=== PATIENT | female | born 1990 | race Caucasian/White ===

== ENCOUNTER 2022-05-08 07:35 | Emergency (ER) | payer SELFPAY ==
--- OUTSIDE RECORDS SUMMARY | 2022-05-08 07:39 | XMS REPORT | Continuity of Care Document ---
:1990 Author Organization [facility] t Address [address] [facility] [address] [place] [address] Care Team Providers Name Role Phone Lincoln Carrasco MD Primary Care Physician RICO NICOLE Attending Clinician Unavailable Rico Montiel Attending Clinician Problems Condition Condition Condition Status Onset Resolution Last Treating Co mments Source Name Details Category Date Date Treatment Clinician Date Celiac Celiac Disease Active Univers disease disease 10-04 ity of 00:00: [place] 00 Medical Branch Allergies, Adverse Reactions, Alerts This patient has no known allergies or adverse reactions. Social History Social Habit Start Date Stop Date Quantity Comments Source Exposure to 2021-09-24 2021-10-04 Yes [facility] SARS-CoV-2 (event) 00:00:00 18:09:00 Medica l Branch Sex Assigned At [birth year] [facility] 00:00:00 00:00:00 Medical Branch Smoking Status Start Date Stop Date Source Tobacco smoking consumption [facility] unknown Branch Medications Ordered Filled Start Stop Current Ordering Indication Dosage Frequency Signature Comments Components Source Medication Medication Date Date Medication? Clinician (SIG) Name Name proMETHazin 2021- No [id number] 12.5mg Insert 1 Univers e 12.5 mg 10-05 Suppositor ity of suppository 00:00: 04:59 y into [place] as 00 :00 rectum Medical every 6 Branch (six) hours as needed for Nausea and Vomiting (N/V) for up to 2 days. nirmatrelvi Yes [id number] 3{tbl} Take 3 Univers r-ritonavir 7-28 tablets by it y of (PAXLOVID, 00:00: mouth in [place] EUA,) 150 00 the Medical mg x 2- 100 morning Branc h mg tablet and 3 tablets in the evening. nirmatrelvi Yes [id number] 3{tbl} Take 3 Univers r-ritonavir 7-28 tablets by it y of (PAXLOVID, 00:00: mouth in [place] EUA,) 150 00 the Medical mg x 2- 100 morning Branc h mg tablet and 3 tablets in the evening. proMETHazin 2021- No [id number] 12.5mg Insert 1 Univers e 12.5 mg 7-28 - Suppositor ity of suppository 00:00: 00:00 y into [place] 00 :00 rectum Medical every 6 Branch (six) hours as needed for Nausea and Vomiting (N/V). nirmatrelvi 2021- No [id number] 3{tbl} Take 3 Univers r-ritonavir 7-28 -28 tablets by i ty of (PAXLOVID, 00:00[place] 00:00 [place] EUA[place] 150 00 :00 the Medical mg x 2- 100 morning Branc h mg tablet and 3 tablets in the evening. proMETHazin 2021- No [id number] 12.5mg Insert 1 Univers e 12.5 mg 7-28 - Suppositor ity of suppository 00:00: 00:00 y into [place] 00 :00 rectum Medical every 6 Branch (six) hours as needed for Nausea and Vomiting (N/V) for up to 3 days. desog-e.est 2019-03- No [id number] 1{tbl} Take 1 Univers radioL/e.es 2-04 - tablet by it y of tradioL 00:00: 00:00 mouth [place] (VIORELE, 00 :00 daily. Medical 28,) Branch 0.15-0.02 mgx21 /0.01 mg x 5 per tablet Vital Signs Vital Name Observation Time Observation Value Comments Source Systolic blood 2021-10-04 23:22:00 104 mm[Hg] Univer sity of pressure [facility] Diastolic blood 2021-10-04 23:22:00 70 mm[Hg] Unive rsity of pressure [facility] Heart rate 2021-10-04 23:22:00 73 /min [facility] Body temperature 2021-10-04 23:22:00 37.39 Deborah [facility] Respiratory rate 2021-10-04 23:22:00 18 /min [facility] Body height 2021-10-04 23:22:00 157.5 cm [facility] Body weight 2021-10-04 23:22:00 51.71 kg [facility] BMI 2021-10-04 23:22:00 20.85 kg/m2 [facility] Oxygen saturation in 2021-10-04 23:22:00 97 /min [facility] Arterial blood by [facility] Pulse oximetry Branch Procedures Procedure Date / Time Performed Performing Clinician Sourc e POCT SARS-COV-2 2021-10-04 23:37:00 Rico Nicole [facility] ANTIGEN (BINAX NOW) Medical Bran ch Encounters Start End Encounter Admission Attending Care Care Encounter Source Date/Time Date/Time Type Type Clinicians Facility Department ID 2021-10-04 2021-10-04 [facility] [id number] 18:00:00 18:38:01 RICO goldstein o f [facility] 2021-10-04 2021-10-04 Urgent [facility] [id number] Univers 18:00:00 18:38:01 Care Rico [facility] [id number] ity of [place] [id number] [place] RUTHANN?BLEA [id number] [address] MEDICAL OFFICE BUILDING 2021-10-04 2021-10-04 Telephone [facility] [id number] Univers 00:00:00 00:00:00 Rico [facility] [id number] ity of [place] [id number] [place] RUTHANN?BLEA [id number] [address] MEDICAL OFFICE BUILDING Results Test Description Test Time Test Comments Results Result Comments Source POCT SARS-COV-2 ANTIGEN (BINAX NOW) 2021-10-04 23:37:00 Test Item Value Reference Range Interpretation Comme nts POCT SARS-COV-2 ANTIGEN (test code Positive Not Detected A = 5076) On board controls acceptable with Yes C Line (test code = 3574) VANNA (test code = VANNA) accurate development and interpretation of all internal controls Lab Interpretation (test code = Abnormal 97711-0) [facility]
[2022-05-08 09:09] LABS: SARS-COV-2 RT PCR NEGATIVE (NEGATIVE)
--- NOTE | 2022-05-08 09:10 | ER ---
Nurse's Notes [facility] Jermeias Name: Radha Huitron Age: 31 yrs Sex: Female : 1990 Arrival Date: 05/08/2022 Time: 07:38 Bed IW1 Private MD: Diagnosis: Acute pharyngitis, unspecified;Acute upper respiratory infection, unspecified Presentation: 05/08 07:54 Chief complaint: Patient states: "I feel like there is a marble on the L side of my ss throat." Pt reports that the swelling began within the past 24 hours. Coronavirus screen: Client denies travel out of the [place] in the last 14 days. Ebola Screen: Patient denies exposure to infectious person. Patient denies travel to an Ebola-affected area in the 21 days before illness onset. Initial Sepsis Screen: Does the patient meet any 2 criteria? No. Patient's initial sepsis screen is negative. Does the patient have a suspected source of infection? No. Patient's initial sepsis screen is negative. Risk Assessment: Do you want to hurt yourself or someone else? Patient reports no desire to harm self or others. Onset of symptoms was May 07, 2022. 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 States that she has a cycle without bleeding. ss Historical: - Allergies: 07:56 Wheat/glutens; ss - Home Meds: 07:56 None [Active]; ss - PMHx: 07:56 None; ss - PSHx: 07:56 Cholecystectomy; Tonsillectomy; ss - Immunization history:: Client reports having NOT received the Covid vaccine. - Social history:: Smoking status: Patient denies any tobacco usage or history of. Screenin:20 [facility] ED Fall Risk Assessment (Adult) History of falling in the last 3 months, ss including since admission No falls in past 3 months (0 pts). Abuse screen: Denies threats or abuse. Denies injuries from another. Nutritional screening: No deficits noted. Tuberculosis screening: Never had TB. Assessment: 08:03 General: Appears in no apparent distress. comfortable, Behavior is calm, cooperative. ss Pain: Complains of pain in throat Pain currently is 7 out of 10 on a pain scale. Quality of pain is described as sore. Neuro: Level of Consciousness is awake, alert, obeys commands, Oriented to person, place, time, situation. Respiratory: Airway is patent Respiratory effort is even, unlabored, Respiratory pattern is regular, symmetrical. Musculoskeletal: Circulation, motion, and sensation intact. Range of motion: intact in all extremities. 09:19 Reassessment: Patient appears in no apparent distress at this time. Patient and/or ss family updated on plan of care and expected duration. Pain level reassessed. Patient is alert, oriented x 3, equal unlabored respirations, skin warm/dry/pink. Vital Signs: 07:54 BP 123 / 79; Pulse 87; Resp 16; Temp 97.9(TE); Pulse Ox 100% on R/A; Weight 56.7 kg; ss Pain 7/10; ED Course: 07:38 Patient arrived in ED. rg4 07:41 Lenin Benitez MD is Attending Physician. [facility] 07:56 Triage completed. 07:56 Arm band placed on right wrist. 08:03 Patient has correct armband on for positive identification. 09:19 Licha Hall, RN is Primary Nurse. 09:19 No provider procedures requiring assistance completed. Patient did not have IV access ss during this emergency room visit. Administered Medications: No medications were administered Medication: 08:03 VIS not applicable for this client. ss Outcome: 09:10 Discharge ordered by . [facility] 09:19 Discharged to home ambulatory. 09:19 Condition: good 09:19 Discharge instructions given to patient, family, Pt and mother verbalize understanding importance of taking medications. Pt reports that she will not take the steroids because she is starting a new job and it would be bad for her, but is content with care received Instructed on discharge instructions, follow up and referral plans. medication usage, Demonstrated understanding of instructions, follow-up care, medications, Prescriptions given X 3. 09:20 Patient left the ED. ss Signatures: Lenin Benitez MD MD cha Smirch, Shelby, REENA RN Alysa Zamora rg4
--- NOTE | 2022-05-08 09:11 | EDPHYS ---
Physician Documentation [facility] Name: Radha Huitron Age: 31 yrs Sex: Female : 1990 Arrival Date: 05/08/2022 Time: 07:38 Bed IW1 Private MD: KATHY Physician Lenin Benitez HPI: 05/08 09:02 This 31 yrs old Female presents to ER via Ambulatory with complaints of Sore ruben Throat. 09:02 The patient presents with sore throat. The patient describes throat pain as burning, ruben constant. Onset: The symptoms/episode began/occurred 2 day(s) ago. Severity of symptoms: At their worst the symptoms were mild, in the emergency department the symptoms are unchanged. Modifying factors: The symptoms are alleviated by nothing, the symptoms are aggravated by swallowing. Associated signs and symptoms: The patient has no apparent associated signs or symptoms. The patient has experienced similar episodes in the past, several times. 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 States that she has a cycle without bleeding. ss Historical: - Allergies: 07:56 Wheat/glutens; ss - Home Meds: 07:56 None [Active]; ss - PMHx: 07:56 None; ss - PSHx: 07:56 Cholecystectomy; Tonsillectomy; ss - Immunization history:: Client reports having NOT received the Covid vaccine. - Social history:: Smoking status: Patient denies any tobacco usage or history of. ROS: 09:04 Constitutional: Negative for fever, chills, and weight loss, Eyes: Negative for injury, ruben pain, redness, and discharge, Neck: Negative for injury, pain, and swelling, Cardiovascular: Negative for chest pain, palpitations, and edema, Respiratory: Negative for shortness of breath, cough, wheezing, and pleuritic chest pain, Abdomen/GI: Negative for abdominal pain, nausea, vomiting, diarrhea, and constipation, Back: Negative for injury and pain, : Negative for injury, bleeding, discharge, and swelling, MS/Extremity: Negative for injury and deformity, Skin: Negative for injury, rash, and discoloration, Neuro: Negative for headache, weakness, numbness, tingling, and seizure, Psych: Negative for depression, anxiety, suicide ideation, homicidal ideation, and hallucinations, Allergy/Immunology: Negative for hives, rash, and allergies, Endocrine: Negative for neck swelling, polydipsia, polyuria, polyphagia, and marked weight changes, Hematologic/Lymphatic: Negative for swollen nodes, abnormal bleeding, and unusual bruising. : ENT: Positive for sore throat. Exam: :04 Constitutional: This is a well developed, well nourished patient who is awake, alert, ruben and in no acute distress. Head/Face: Normocephalic, atraumatic. Eyes: Pupils equal round and reactive to light, extra-ocular motions intact. Lids and lashes normal. Conjunctiva and sclera are non-icteric and not injected. Cornea within normal limits. Periorbital areas with no swelling, redness, or edema. Neck: Trachea midline, no thyromegaly or masses palpated, and no cervical lymphadenopathy. Supple, full range of motion without nuchal rigidity, or vertebral point tenderness. No Meningismus. Chest/axilla: Normal chest wall appearance and motion. Nontender with no deformity. No lesions are appreciated. Cardiovascular: Regular rate and rhythm with a normal S1 and S2. No gallops, murmurs, or rubs. Normal PMI, no JVD. No pulse deficits. Respiratory: Lungs have equal breath sounds bilaterally, clear to auscultation and percussion. No rales, rhonchi or wheezes noted. No increased work of breathing, no retractions or nasal flaring. Abdomen/GI: Soft, non-tender, with normal bowel sounds. No distension or tympany. No guarding or rebound. No evidence of tenderness throughout. Back: No spinal tenderness. No costovertebral tenderness. Full range of motion. Female : Normal external genitalia. Skin: Warm, dry with normal turgor. Normal color with no rashes, no lesions, and no evidence of cellulitis. MS/ Extremity: Pulses equal, no cyanosis. Neurovascular intact. Full, normal range of motion. Neuro: Awake and alert, GCS 15, oriented to person, place, time, and situation. Cranial nerves II-XII grossly intact. Motor strength 5/5 in all extremities. Sensory grossly intact. Cerebellar exam normal. Normal gait. Psych: Awake, alert, with orientation to person, place and time. Behavior, mood, and affect are within normal limits. :04 ENT: Posterior pharynx: Airway: normal, no evidence of obstruction, Tonsils: with erythema, Uvula: normal, midline, swelling, that is mild, erythema, that is mild, exudate, is not appreciated, peritonsillar mass, is not appreciated, pooling of secretions, is not appreciated, Voice: is normal. Vital Signs: 07:54 BP 123 / 79; Pulse 87; Resp 16; Temp 97.9(TE); Pulse Ox 100% on R/A; Weight 56.7 kg; ss Pain 7/10; MDM: 07:42 Patient medically screened. [facility] 09:06 Differential diagnosis: bronchitis, influenza, laryngitis, mononucleosis, peritonsillar ruben abscess pharyngitis. Data reviewed: vital signs, nurses notes, lab test result(s), Flu: negative. Consideration of Admission/Observation Escalation of care including admission/observation considered. I considered the following discharge prescriptions or medication management in the emergency department Medications were administered in the Emergency Department. See MAR. Test considered but Not performed: CT: soft tissue neck. Care significantly affected by the following chronic conditions: none. 05/08 08:43 Order name: Group A Streptococcus Rapid Sc; Complete Time: 08:51 EDMS 05/08 09:06 Order name: COVID-19/FLU A+B; Complete Time: 09:09 EDMS 05/08 09:09 Order name: Throat Culture EDMS Administered Medications: No medications were administered Disposition Summary: 05/08/22 09:10 Discharge Ordered Location: Home ruben Problem: new ruben Symptoms: have improved ruben Condition: Stable ruben Diagnosis - Acute pharyngitis, unspecified ruben - Acute upper respiratory infection, unspecified ruben Followup: ruben - With: Private Physician - When: 2 - 3 days - Reason: Recheck today's complaints, Continuance of care, Re-evaluation by your physician Discharge Instructions: - Discharge Summary Sheet ruben - Sore Throat ruben - Cool Mist Vaporizer ruben - Pharyngitis, Rgme-ay-Qjgo ruben - Sore Throat, Mndn-wk-Cois ruben Forms: - Medication Reconciliation Form ruben - Thank You Letter ruben - Antibiotic Education ruben - Prescription Opioid Use ruben Prescriptions: - Farida-D 12 Hour 60-120 mg Oral Tablet Sustained Release 12 hr - take 1 tablet by ORAL route every 12 hours As needed; 20 tablet; Refills: 0, ruben Product Selection Permitted - Zithromax Z-Félix 250 mg Oral Tablet - take 1 tablet by ORAL route as directed for 5 days Day 1 - take two (2) tablets ruben one time. Day 2, 3, 4 , 5 take one (1) tablet once daily.; 6 tablet; Refills: 0, Product Selection Permitted - Medrol (Félix) 4 mg Oral Tablets, Dose Pack - take 1 tablet by ORAL route as directed - follow package instructions; 1 ruben packet; Refills: 0, Product Selection Permitted Signatures: Dispatcher [employer] Lenin Nix MD MD cha Smirch, Shelby, RN RN ss
[2022-05-08 09:29] VITALS: BP 123/79; TEMP 97.9; O2SAT 100
== END 2022-05-08 09:20 | disposition home or self-care (01) ==
LOC: ER 07:35
DX: J02.9 Acute pharyngitis, unspecified (principal); J06.9 Acute upper respiratory infection, unspecified; Z91.018 Allergy to other foods
CPT/HCPCS: 0240U; 87070; 87081

== ENCOUNTER → 2023-06-01 | Emergency (ER) | payer SELFPAY ==
[~2023-06-01] MED LIST: DICYCLOMINE HCL 10 MG CAP ONE; DICYCLOMINE HCL 20 MG/2 ML AMP IM ONE; KETOROLAC 30 MG/ML INJ ONE; NA CHLORIDE 0.9% 500 ML ONE
--- OUTSIDE RECORDS SUMMARY | 2023-06-01 21:24 | XMS REPORT | Continuity of Care Document ---
Author Name Unknown Address [address] [facility] [address] [address] th[address] Address [address] [facility] [address] [place] [address] Care Team Providers Care Film Mounter Name Role Phone Lincoln Carrasco MD Primary Care Physician RICO NICOLE Attending Clinician Unavail Rico Sanchez Attending Clinician + [phone] Problems Condition Name Condition Details Condition Category Status Onset Date Resolution Date Last Treatment Date Treating Clinician Comments Source Celiac disease Celiac disease Disease Active 10-04 00:00: 00 [facility] Social History Social Habit Start Date Stop Date Quantity Comments Source Exposure to SARS-CoV-2 (event) 2021-09-24 00:00:00 2021-10-04 18:09:00 Yes [facility] Sex Assigned At 1990 00:00:00 1990 00:00:00 [facility] Smoking Status Start Date Stop Date Source Tobacco smoking consumption unknown [facility] Medications Ordered Medication Name Filled Medication Name Start Date Stop Date Current Medication? Ordering Clinician Indication Dosage Frequency Signature (SIG) Comments Components Source proMETHazin e 12.5 mg suppository 10-05 00:00: 00 10-08 04:59 :00 No [id number] 12.5mg Insert 1 Suppositor y into rectum every 6 (six) hours as needed for Nausea and Vomiting (N/V) for up to 2 days. [facility] nirmatrelvi r-ritonavir (PAXLOVID, EUA,) 150 mg x 2- 100 mg tablet 10-04 00:00: 00 Yes [id number] 3{tbl} Take 3 tablets by mouth in the morning and 3 tablets in the evening. [facility] nirmatrelvi r-ritonavir (PAXLOVID, EUA,) 150 mg x 2- 100 mg tablet 10-04 00:00: 00 Yes [id number] 3{tbl} Take 3 tablets by mouth in the morning and 3 tablets in the evening. [facility] proMETHazin e 12.5 mg suppository 10-04 00:00: 00 10-05 00:00 :00 No [id number] 12.5mg Insert 1 Suppositor y into rectum every 6 (six) hours as needed for Nausea and Vomiting (N/V). [facility] nirmatrelvi r-ritonavir (PAXLOVID, EUA,) 150 mg x 2- 100 mg tablet 10-04 00:00: 00 10-04 00:00 :00 No [id number] 3{tbl} Take 3 tablets by mouth in the morning and 3 tablets in the evening. [facility] proMETHazin e 12.5 mg suppository 10-04 00:00: 00 10-04 00:00 :00 No [id number] 12.5mg Insert 1 Suppositor y into rectum every 6 (six) hours as needed for Nausea and Vomiting (N/V) for up to 3 days. [facility] desog-e.est radioL/e.es tradioL (OREL, ,) 0.15-0.02 mgx21 /0.01 mg x 5 per tablet 2019-03 2-04 00:00: 00 10-04 00:00 :00 No [id number] 1{tbl} Take 1 tablet by mouth daily. [facility] Vital Signs Vital Name Observation Time Observation Value Comments S carlito Systolic blood pressure 2021-10-04 23:22:00 104 mm[Hg] [place] [facility] Diastolic blood pressure 2021-10-04 23:22:00 70 mm[Hg] [place] [facility] Heart rate 2021-10-04 23:22:00 73 /min [facility] Body temperature 2021-10-04 23:22:00 37.39 Deborah [facility] Respiratory rate 2021-10-04 23:22:00 18 /min [facility] Body height 2021-10-04 23:22:00 157.5 cm [facility] Body weight 2021-10-04 23:22:00 51.71 kg [facility] BMI 2021-10-04 23:22:00 20.85 kg/m2 [facility] Oxygen saturation in Arterial blood by Pulse oximetry 2021-10-04 23:22:00 97 /min [place] [facility] Procedures Procedure Date / Time Performed Performing Clinicia n Source POCT SARS-COV-2 ANTIGEN (BINAX NOW) 2021-10-04 23:37:00 Rico Nicole [facility] Encounters Start Date/Time End Date/Time Encounter Type Admission Type Attending [facility] Care Facility Care Department Encounter ID Source 2021-10-04 18:00:00 2021-10-04 18:38:01 Outpatient R RICO NICOLE [facility] [id number] [facility] 2021-10-04 18:00:00 2021-10-04 18:38:01 Urgent Care Rico Nicole [facility] [id number] [facility] 2021-10-04 00:00:00 2021-10-04 00:00:00 Telephone Rico Nicole [facility] [id number] [facility] Results Test Description Test Time Test Comments Results Result Co mments Source [facility]
--- NOTE | 2023-06-01 22:40 | RAD REPORT ---
EXAM DESCRIPTION: CTAbdomen Pelvis W Contrast - 06/01/2023 10:31 pm CLINICAL HISTORY: Abdominal pain. RLQ abd pain, worse COMPARISON: No comparisons TECHNIQUE: Biphasic CT imaging of the abdomen and pelvis was performed with 100 ml non-ionic IV cont rast. All CT scans are performed using dose optimization technique as appropriate and may include automated exposure control or mA/KV adjustment according to patient size. FINDINGS: The lung bases are clear. The liver, spleen, pancreas, adrenal glands and kidneys are within normal limits. No bowel obstruction, free air, free fluid or abscess. Several distal ileal loops are significantly f ecalized. There is significant retention: Stool also present on the right. The appendix is normal. N o evidence of significant lymphadenopathy. No suspicious bony findings. IMPRESSION: Fecalization of numerous distal ileal loops are present suggesting delayed transit or in ertia. Moderate colonic stool is present along the right colon. Normal appendix
[2023-06-01 22:43] LABS: Absolute Eosinophils 0.9 K/uL (0-0.5); Absolute Lymphocytes (CBC) 3.5 K/uL (0.7-4.9); Absolute Monocytes 0.7 K/uL (0.1-1.3); Absolute Neutrophil 6.2 K/uL (1.8-8.0); Basophils % 0.2 % (0-1.3); Hematocrit 32.5 % (36.0-45.0); Hemoglobin 10.4 g/dL (12.0-15.0); Lymphocytes % 31.1 % (15.3-44.8); MCH 19.1 pg (27.0-35.0); MCV 59.7 fL (80-100); MPV 8.7 fL (7.6-11.3); Monocytes % 6.1 % (3.3-12.3); Neutrophils % 54.6 % (41.7-73.7); Nucleated Red Blood Cells % 0.2 % (0-0); Platelets 290 thou/uL (152-406); RBC Red Blood Cell Count 5.44 M/uL (3.86-4.86); Red Cell Distribution Width 15.5 % (12.1-15.2)
[2023-06-01 22:56] LABS: Albumin 3.3 g/dL (3.4-5.0); Albumin/Globulin Ratio 1.1 (1.1-1.8); Anion Gap 9.9 mEq/L (5.0-15.0); Bilirubin Total 0.6 mg/dL (0.2-1.0); Globulin 3.1 g/dL (2.3-3.5); Potassium 3.9 mEq/L (3.5-5.1); Protein, Total 6.4 g/dL (6.4-8.2)
--- NOTE | 2023-06-02 00:02 | EDPHYS ---
Physician Documentation [facility] Name: Radha Huitron Age: 32 yrs Sex: Female : 1990 Arrival Date: 06/01/2023 Time: 21:21 Bed 17 Private MD: ED Physician Nicolás Jerez HPI: 05/31 22:10 This 32 yrs old Female presents to ER via Wheelchair with complaints of Abdominal Pain. rn 22:10 The patient presents with abdominal pain right lower quadrant. rn 22:11 Onset: The symptoms/episode began/occurred 3 day(s) ago. The symptoms do not radiate. rn Associated signs and symptoms: Pertinent negatives: blood in stools, chest pain, constipation, diarrhea, dysuria, fever, hematuria, vaginal discharge. The symptoms are described as sharp, stabbing. Modifying factors: The symptoms are alleviated by nothing, the symptoms are aggravated by pressure, touching the area. Severity of pain: At its worst the pain was moderate in the emergency department the pain has improved. The patient has not experienced similar symptoms in the past. Patient seen earlier today with negative workup. Returns for persistent abdominal pain. Has not worsened. Declined pain medication earlier in previous visit. Patient states does not want narcotic pain medication. No known history of kidney stones but CT earlier showed right renal stone without hydro or ureteral stone. Negative for appendicitis.. Historical: - Allergies: 21:43 Wheat/glutens; tl4 - PSHx: 21:43 Cholecystectomy; Tonsillectomy; tl4 - Immunization history:: Adult Immunizations unknown. - Social history:: Smoking status: Reported history of juuling and/or vaping. - Family history:: not pertinent. - Hospitalizations: : No recent hospitalization is reported. ROS: 22:11 Constitutional: Negative for fever, chills, and weight loss, Cardiovascular: Negative rn for chest pain, palpitations, and edema, Respiratory: Negative for shortness of breath, cough, wheezing, and pleuritic chest pain, Abdomen/GI: + abdominal pain Back: Negative for injury and pain, : Negative for injury, bleeding, discharge, and swelling, Exam: 22:11 Constitutional: This is a well developed, well nourished patient who is awake, alert, rn and in no acute distress. Cardiovascular: Regular rate and rhythm. No pulse deficits. Respiratory: No increased work of breathing, no retractions or nasal flaring. Abdomen/GI: Soft, mild RLQ tenderness, no rebound Vital Signs: 21:40 BP 132 / 75; Pulse 63; Resp 15; Temp 97.3(TE); Pulse Ox 100% on R/A; Weight 56.7 kg; tl4 Height 5 ft. 3 in. ; Pain 10/10; 22:02 BP 101 / 59; Pulse 91; Pulse Ox 97% on R/A; Pain 10/10; tm6 23:16 BP 107 / 59; Pulse 72; Pulse Ox 98% on R/A; Pain 8/10; tm6 06/01 00:51 BP 109 / 68; Pulse 55; Resp 17; Temp 97.1(TE); Pulse Ox 100% on R/A; Pain 5/10; tm6 05/31 21:40 Body Mass Index 22.14 (56.70 kg, 160.02 cm) 4 05/31 21:40 Pain Scale: Adult tl4 22:02 Pain Scale: Adult tm6 23:16 Pain Scale: Adult tm6 06/01 00:51 Pain Scale: Adult tm6 MDM: 05/31 21:30 Patient medically screened. rn 23:59 Differential diagnosis: appendicitis, diverticulitis, Endometriosis, gastritis, rn non-specific abd pain, Ovarian Torsion, Ureterolithiasis. Data reviewed: vital signs, nurses notes, lab test result(s), radiologic studies, CT scan, ultrasound. Counseling: I had a detailed discussion with the patient and/or guardian regarding the historical points, exam findings, and any diagnostic results supporting the discharge/admit diagnosis, lab results, radiology results, the need for outpatient follow up, to return to the emergency department if symptoms worsen or persist or if there are any questions or concerns that arise at home. Special discussion: Based on the patient's Hx, exam, and Dx evaluation, there is no indication for emergent surgery or inpatient Tx. It is understood by the patient/guardian that if the Sx's persist or worsen they need to return immediately for re-evaluation. I discussed with the patient/guardian in detail that at this point there is no indication for admission to the hospital. It is understood, however, that if the symptoms persist or worsen the patient needs to return immediately for re-evaluation. ED course: CT stone protocol was performed earlier on first visit, CT abdomen pelvis with IV contrast as well as ultrasound of pelvis performed today during this visit to rule out any other etiology of her pain. CT now shows fecalization into the distal small bowel, most likely fecal retention, no other acute finding. Ultrasound is negative for torsion or evidence of acute pathology. Urine and UPT was negative earlier. No gross changes in blood work. Will discharge home with return precautions.. 05/31 21:37 Order name: CBC with Diff rn 05/31 21:37 Order name: CMP; Complete Time: 23:44 rn 05/31 22:50 Order name: CBC Smear Scan EDMS 05/31 21:37 Order name: CT Abd/Pelvis - IV Contrast Only; Complete Time: 23:44 rn 05/31 21:37 Order name: US Pelvis Complete rn 05/31 21:37 Order name: IV Saline Lock; Complete Time: 21:58 rn 05/31 21:37 Order name: Labs collected and sent; Complete Time: 21:58 rn 05/31 22:13 Order name: Labs - recollect needed; Complete Time: 22:23 lg3 Administered Medications: 23:15 Drug: Ketorolac IVP 15 mg IVP once Route: IVP; Site: right antecubital; tm6 06/01 00:21 Drug: NS 0.9% IV 500 ml IV at bolus once Route: IV; Rate: bolus; Site: right tm6 antecubital; 00:50 Follow up: IV Status: Completed infusion; IV Intake: 500ml tm6 00:22 Not Given (Patient Refused): [id number] mg IM once tm6 00:22 Drug: Dicyclomine PO 20 mg PO once Route: PO; tm6 Disposition Summary: 06/02/23 00:01 Discharge Ordered Notes: Location: Home rn Problem: new rn Symptoms: have improved rn Condition: Stable rn Diagnosis - Lower abdominal pain, unspecified rn - Constipation, unspecified rn Followup: rn - With: Private Physician - When: As needed - Reason: Recheck today's complaints, Re-evaluation by your physician Discharge Instructions: - Discharge Summary Sheet rn - Abdominal Pain, Adult rn - Constipation, Adult rn Forms: - Medication Reconciliation Form rn - Thank You Letter rn - Antibiotic rn first assist - Prescription Opioid Use rn - Patient Portal Instructions rn - Leadership Thank You Letter rn Prescriptions: - dicyclomine 20 mg Oral tablet - take 1 tablet ORAL route 2 times per day As needed; 12 tablet; Refills: 0, rn Product Selection Permitted Signatures: Dispatcher [employer] EDMS Nicolás Jerez MD MD rn Able, Lacie RN RN lg3 Zackary Rader RN RN tm6 LogPetr spencer RN RN tl4 Corrections: (The following items were deleted from the chart) 05/31 22:15 22:11 Constitutional: This is a well developed, well nourished patient who is awake, rn alert, and in no acute distress. Cardiovascular: Regular rate and rhythm. No pulse deficits. Respiratory: No increased work of breathing, no retractions or nasal flaring. Abdomen/GI: Soft, mild RLQ tenderness, no rebound rn
--- NOTE | 2023-06-02 00:02 | ER ---
Nurse's Notes [facility] Name: Radha Huitron Age: 32 yrs Sex: Female : 1990 Arrival Date: 06/01/2023 Time: 21:21 Bed 17 Private MD: Diagnosis: Lower abdominal pain, unspecified;Constipation, unspecified Presentation: 05/31 21:40 Chief complaint: Patient states: Pt c/o right lower quadrant abdominal pain x 3 days. tl4 Pt was evaluated in this ED this am. Pt states pain has gotten worse throughout the day. +nausea. Coronavirus screen: At this time, the client does not indicate any symptoms associated with coronavirus-19. Ebola Screen: No symptoms or risks identified at this time. Initial Sepsis Screen: Does the patient meet any 2 criteria? No. Patient's initial sepsis screen is negative. Does the patient have a suspected source of infection? No. Patient's initial sepsis screen is negative. Risk Assessment: Do you want to hurt yourself or someone else? Patient reports no desire to harm self or others. Onset of symptoms was June 01, 2023. 21:40 Method Of Arrival: Wheelchair tl4 21:40 Acuity: EDITH 3 tl4 Triage Assessment: 21:45 General: Appears in no apparent distress. Behavior is cooperative. Pain: Complains of tl4 pain in abdomen. EENT: No deficits noted. No signs and/or symptoms were reported regarding the EENT system. Neuro: Level of Consciousness is awake, alert, obeys commands, Oriented to person, place, time, situation, Moves all extremities. Speech is normal, Facial symmetry appears normal. Cardiovascular: Capillary refill < 3 seconds Patient's skin is warm and dry. Respiratory: Airway is patent Trachea midline Respiratory effort is even, unlabored, Respiratory pattern is regular, symmetrical. GI: Reports lower abdominal pain, nausea. : No deficits noted. No signs and/or symptoms were reported regarding the genitourinary system. Derm: No deficits noted. No signs and/or symptoms reported regarding the dermatologic system. Musculoskeletal: No deficits noted. No signs and/or symptoms reported regarding the musculoskeletal system. Historical: - Allergies: 21:43 Wheat/glutens; tl4 - PSHx: 21:43 Cholecystectomy; Tonsillectomy; tl4 - Immunization history:: Adult Immunizations unknown. - Social history:: Smoking status: Reported history of juuling and/or vaping. - Family history:: not pertinent. - Hospitalizations: : No recent hospitalization is reported. Screenin:58 [facility] ED Fall Risk Assessment (Adult) History of falling in the last 3 months, tm6 including since admission No falls in past 3 months (0 pts) Confusion or Disorientation No (0 pts) Intoxicated or Sedated No (0 pts) Impaired Gait No (0 pts) Mobility Assist Device Used No (0 pt) Altered Elimination No (0 pt) Score/Fall Risk Level 0 - 2 = Low Risk Oriented to surroundings, Maintained a safe environment. Abuse screen: Denies threats or abuse. Denies injuries from another. Nutritional screening: No deficits noted. Tuberculosis screening: No symptoms or risk factors identified. Assessment: 21:58 General: Appears distressed, uncomfortable, Behavior is cooperative, anxious, crying. tm6 Pain: Complains of pain in right lower quadrant Pain currently is 10 out of 10 on a pain scale. Quality of pain is described as stabbing. Neuro: Level of Consciousness is awake, alert, obeys commands, Oriented to person, place, time, situation. Cardiovascular: Capillary refill < 3 seconds Patient's skin is warm and dry. Respiratory: Airway is patent Respiratory effort is even, unlabored, Respiratory pattern is regular, symmetrical. GI: Abdomen is flat, non-distended, Bowel sounds present X 4 quads. Abdomen is tender to palpation in right lower quadrant Reports nausea. : No signs and/or symptoms were reported regarding the genitourinary system. EENT: No signs and/or symptoms were reported regarding the EENT system. Derm: No signs and/or symptoms reported regarding the dermatologic system. Musculoskeletal: No signs and/or symptoms reported regarding the musculoskeletal system. 23:16 Reassessment: Patient and/or family updated on plan of care and expected duration. Pain tm6 level reassessed. Patient is alert, oriented x 3, equal unlabored respirations, skin warm/dry/pink. 06/01 00:51 Reassessment: Patient is alert, oriented x 3, equal unlabored respirations, skin tm6 warm/dry/pink. Vital Signs: 05/31 21:40 BP 132 / 75; Pulse 63; Resp 15; Temp 97.3(TE); Pulse Ox 100% on R/A; Weight 56.7 kg; tl4 Height 5 ft. 3 in. ; Pain 10/10; 22:02 BP 101 / 59; Pulse 91; Pulse Ox 97% on R/A; Pain 10/10; tm6 23:16 BP 107 / 59; Pulse 72; Pulse Ox 98% on R/A; Pain 8/10; tm6 06/01 00:51 BP 109 / 68; Pulse 55; Resp 17; Temp 97.1(TE); Pulse Ox 100% on R/A; Pain 5/10; tm6 05/31 21:40 Body Mass Index 22.14 (56.70 kg, 160.02 cm) tl4 05/31 21:40 Pain Scale: Adult tl4 22:02 Pain Scale: Adult tm6 23:16 Pain Scale: Adult tm6 06/01 00:51 Pain Scale: Adult tm6 ED Course: 05/31 21:25 Patient arrived in ED. gm2 21:30 Nicolás Jerez MD is Attending Physician. rn 21:43 Triage completed. tl4 21:46 Arm band placed on right wrist. tl4 21:51 Zackary Rader, REENA is Primary Nurse. tm6 21:55 Inserted saline lock: 20 gauge in right antecubital area, using aseptic technique. cp4 Blood collected. 21:58 Patient has correct armband on for positive identification. Placed in gown. Bed in low tm6 position. Call light in reach. Side rails up X2. Provided Education on: plan of care. Client placed on continuous cardiac and pulse oximetry monitoring. NIBP monitoring applied. Pulse ox on. NIBP on. Door closed. Noise minimized. Lights dimmed. Warm blanket given. 21:58 CBC with Diff Sent. tm6 21:58 CMP Sent. tm6 22:32 CT Abd/Pelvis - IV Contrast Only In Process Unspecified. EDMS 23:15 US Pelvis Complete In Process Unspecified. EDMS 06/01 00:51 No provider procedures requiring assistance completed. IV discontinued, intact, tm6 bleeding controlled, No redness/swelling at site. Pressure dressing applied. Administered Medications: 05/31 23:15 Drug: Ketorolac IVP 15 mg IVP once Route: IVP; Site: right antecubital; tm6 06/01 00:21 Drug: NS 0.9% IV 500 ml IV at bolus once Route: IV; Rate: bolus; Site: right tm6 antecubital; 00:50 Follow up: IV Status: Completed infusion; IV Intake: 500ml tm6 00:22 Not Given (Patient Refused): [id number] mg IM once tm6 00:22 Drug: Dicyclomine PO 20 mg PO once Route: PO; tm6 Medication: 05/31 21:58 VIS not applicable for this client. tm6 Intake: 06/01 00:50 IV: 500ml; Total: 500ml. tm6 Outcome: 00:01 Discharge ordered by . rn 00:51 Discharged to home ambulatory, with family, tm6 00:51 Condition: stable 00:51 Discharge instructions given to patient, family, Instructed on discharge instructions, follow up and referral plans. medication usage, Demonstrated understanding of instructions, follow-up care, medications, Prescriptions given X 1, 00:52 Patient left the ED. tm6 Signatures: Dispatcher [employer] EDMS Nicolás Jerez MD MD rn Potter, Christina 4 Radha Valadez 2 Zackary Rader RN RN tm6 Petr Arango RN RN tl4
[2023-06-02 01:02] LABS: Blood Morphology Comment NOTED (NOT SEEN); Hypochromasia 2+; Microcytosis 3+; Platelet Estimate ADEQ; Teardrop Cell 2+; White Blood Cell Scan OK (OK)
[2023-06-02 01:18] VITALS: BP 109/68; TEMP 97.1; O2SAT 100
--- NOTE | 2023-06-02 21:54 | RAD REPORT ---
EXAM DESCRIPTION: US Pelvis Transabdominal, Complete CLINICAL HISTORY: The patient is 32 years old and is Female; RLQ PAIN TECHNIQUE: Real-time complete transabdominal pelvic ultrasound with image documentation. COMPARISON: No relevant prior studies available. FINDINGS: UTERUS/CERVIX: The uterus measures 7.3 x 3.1 x 3.9 cm. Endometrium measures 0.8 cm. Tr corey amount of fluid is noted within the cervix. No myometrial mass. RIGHT OVARY: The right ovary measures 3.8 x 2.2 x 3.0 cm. Normal arterial and venous color Dopple r and spectral waveform is present. Normal blood flow. LEFT OVARY: The left ovary measures 4.1 x 3.2 x 2.4 cm. Normal arterial and venous color Doppler and spectral waveform is present. A 2.6 cm left ovarian cyst is present. No follow-up imaging is opal mmended. Normal blood flow. FREE FLUID: Small amount of fluid present within the cul-de-sac. BLADDER: Unremarkable as visualized. Wall is normal thickness for degree of distention. IMPRESSION: Unremarkable pelvic ultrasound. Electronically signed by: Jackie Rangel MD 06/01/2023 11:39 PM CDT Due to temporary technical issues with the PACS/Fluency reporting system, reports are being signed by the in house radiologists without review as a courtesy to insure prompt reporting. The interpreting radiologist is fully responsible for the content of the report.
== END ==
LOC: ER 21:21
DX: K59.00 Constipation, unspecified (principal)
CPT/HCPCS: 36415; 74177; 76856; 80053; 85025; Q9967

== ENCOUNTER → 2023-06-01 | Emergency (ER) | payer SELFPAY ==
[~2023-06-01] MED LIST changes: -DICYCLOMINE HCL 10 MG CAP ONE; -DICYCLOMINE HCL 20 MG/2 ML AMP IM ONE; +FAMOTIDINE 20 MG/2 ML VIAL IV ONE; -KETOROLAC 30 MG/ML INJ ONE; +MORPHINE 2 MG/ML SYR ONE; +NA CHLORIDE 0.9% 1,000 ML ONE; -NA CHLORIDE 0.9% 500 ML ONE; +ONDANSETRON 4 MG/2 ML VIAL ONE
--- OUTSIDE RECORDS SUMMARY | 2023-06-01 08:35 | XMS REPORT | Continuity of Care Document ---
Author Name Unknown Address [address] [facility] [address] [place] [address] [facility] thconnect Address [address] [facility] 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 Name Role Phone Lincoln Carrasco MD Primary Care Physician RICO NICOLE Attending Clinician Unavail Rico Sanchez Attending Clinician [phone] Problems Condition Name Condition Details Condition Category Status Onset Date Resolution Date Last Treatment Date Treating Clinician Comments Source Celiac disease Celiac disease Disease Active 10-04 00:00: 00 [facility] Social History Social Habit Start Date Stop Date Quantity Comments Source Exposure to SARS-CoV-2 (event) 2021-09-24 00:00:00 2021-10-04 18:09:00 Yes [facility] Sex Assigned At 1990 00:00:00 1990 00:00:00 [facility] Smoking Status Start Date Stop Date Source Tobacco smoking consumption unknown [facility] Medications Ordered Medication Name Filled Medication Name Start Date Stop Date Current Medication? Ordering Clinician Indication Dosage Frequency Signature (SIG) Comments Components Source proMETHazin e 12.5 mg suppository 10-05 00:00: 00 10-08 04:59 :00 No [id number] 12.5mg Insert 1 Suppositor y into rectum every 6 (six) hours as needed for Nausea and Vomiting (N/V) for up to 2 days. [facility] nirmatrelvi r-ritonavir (PAXLOVID, EUA,) 150 mg x 2- 100 mg tablet 10-04 00:00: 00 Yes [id number] 3{tbl} Take 3 tablets by mouth in the morning and 3 tablets in the evening. [facility] nirmatrelvi r-ritonavir (PAXLOVID, EUA,) 150 mg x 2- 100 mg tablet 10-04 00:00: 00 Yes [id number] 3{tbl} Take 3 tablets by mouth in the morning and 3 tablets in the evening. [facility] proMETHazin e 12.5 mg suppository 10-04 00:00: 00 10-05 00:00 :00 No [id number] 12.5mg Insert 1 Suppositor y into rectum every 6 (six) hours as needed for Nausea and Vomiting (N/V). [facility] nirmatrelvi r-ritonavir (PAXLOVID, EUA,) 150 mg x 2- 100 mg tablet 10-04 00:00: 00 10-04 00:00 :00 No [id number] 3{tbl} Take 3 tablets by mouth in the morning and 3 tablets in the evening. [facility] proMETHazin e 12.5 mg suppository 10-04 00:00: 00 10-04 00:00 :00 No [id number] 12.5mg Insert 1 Suppositor y into rectum every 6 (six) hours as needed for Nausea and Vomiting (N/V) for up to 3 days. [facility] desog-e.est radioL/e.es tradioL (VIOREL, ,) 0.15-0.02 mgx21 /0.01 mg x 5 per tablet 2019-03 00:00: 00 10-04 00:00 :00 No [id number] 1{tbl} Take 1 tablet by mouth daily. [facility] Vital Signs Vital Name Observation Time Observation Value Comments S our Systolic blood pressure 2021-10-04 23:22:00 104 mm[Hg] [facility] Diastolic blood pressure 2021-10-04 23:22:00 70 mm[Hg] [facility] Heart rate 2021-10-04 23:22:00 73 /min [facility] Body temperature 2021-10-04 23:22:00 37.39 Deborah [facility] Respiratory rate 2021-10-04 23:22:00 18 /min [facility] Body height 2021-10-04 23:22:00 157.5 cm [facility] Body weight 2021-10-04 23:22:00 51.71 kg [facility] BMI 2021-10-04 23:22:00 20.85 kg/m2 [facility] Oxygen saturation in Arterial blood by Pulse oximetry 2021-10-04 23:22:00 97 /min [facility] Procedures Procedure Date / Time Performed Performing Clinicia n Source POCT SARS-COV-2 ANTIGEN (BINAX NOW) 2021-10-04 23:37:00 Rico Nicole [facility] Encounters Start Date/Time End Date/Time Encounter Type Admission Type Attending Clinicians Care Facility Care Department Encounter ID Source 2021-10-04 18:00:00 2021-10-04 18:38:01 Outpatient R RICO NICOLE [facility] [id number] [facility] 2021-10-04 18:00:00 2021-10-04 18:38:01 Urgent Care Rico Nicole [facility] [id number] [facility] 2021-10-04 00:00:00 2021-10-04 00:00:00 Telephone Rico Nicole [facility] MEDICAL OFFICE BUILDING [id number] [facility] Results Test Description Test Time Test Comments Results Result Co mments Source [facility]
[2023-06-01 09:40] LABS: Absolute Basophils 0.2 K/uL (0-0.5); Absolute Lymphocytes (CBC) 2.8 K/uL (0.7-4.9); Absolute Monocytes 0.4 K/uL (0.1-1.3); Absolute Neutrophil 3.4 K/uL (1.8-8.0); Basophils % 2.7 % (0-1.3); Eosinophils % 12.2 % (0-4.4); Hematocrit 39.1 % (36.0-45.0); Hemoglobin 12.5 g/dL (12.0-15.0); Lymphocytes % 36.4 % (15.3-44.8); MCH 19.3 pg (27.0-35.0); MCV 60.3 fL (80-100); MPV 8.4 fL (7.6-11.3); Monocytes % 5.4 % (3.3-12.3); Neutrophils % 43.3 % (41.7-73.7); Nucleated Red Blood Cells % 0.2 % (0-0); Platelets 361 thou/uL (152-406); RBC Red Blood Cell Count 6.49 M/uL (3.86-4.86); Red Cell Distribution Width 15.2 % (12.1-15.2)
[2023-06-01 09:42] LABS: Specific Gravity 1.017 (1.005-1.030)
[2023-06-01 09:43] LABS: Specific Gravity 1.017 (1.005-1.030); Urine Bacteria None Seen /HPF (<20); Urine Bilirubin NEGATIVE (Negative); Urine Blood Negative (Negative); Urine Clarity Extremely Turbid (Clear); Urine Color Light-Yellow (Yellow); Urine Culture Reflex Order NOT NEEDED; Urine Glucose NEGATIVE (Negative); Urine Ketones NEGATIVE (Negative); Urine Microscopic Reflex YN ORDER UMIC; Urine Nitrite NEGATIVE (Negative); Urine Protein TRACE (Negative); Urine RBC <5 /HPF (None Seen); Urine Urobilinogen Normal (Normal); Urine WBC <5 /HPF (<5); Urine pH 8.5 (5.0-7.0)
[2023-06-01 09:58] LABS: Albumin 4.2 g/dL (3.4-5.0); Albumin/Globulin Ratio 1.1 (1.1-1.8); Anion Gap 7.8 mEq/L (5.0-15.0); Bilirubin Total 1.1 mg/dL (0.2-1.0); Globulin 3.7 g/dL (2.3-3.5); Potassium 3.8 mEq/L (3.5-5.1); Protein, Total 7.9 g/dL (6.4-8.2)
--- NOTE | 2023-06-01 10:13 | RAD REPORT ---
EXAM DESCRIPTION: CT - Stone Protocol - 06/01/2023 9:57 am CLINICAL HISTORY: Flank pain. ABD PAIN COMPARISON: No comparisons TECHNIQUE: Axial images were obtained without oral or IV contrast. Lack of contrast limits solid org an and vascular assessment. The [id number]-fm-kgsy spans the entirety of the system partially obscuring uppermost abdomen and lung bases. Coronal reformatted images were obtained and reviewed. All CT scans are performed using dose optimization technique as appropriate and may include automated exposure control or mA/KV adjustment according to patient size. FINDINGS: The lower lung deng are clear. Cholecystectomy clips. Imaged portions of the liver and spleen show no suspicious findings on non-contrast imaging. The panc reas and adrenal glands are normal. No pathologic lymphadenopathy in the abdomen or pelvis. Tiny calculus right kidney. No hydronephrosis or additional calculus seen. No bowel obstruction, free air, free fluid or abscess. Normal appendix noted.Moderate stool is presen t throughout the colon. No significant bony abnormality. Somewhat bulky appearance to the cervix. IMPRESSION: Tiny nonobstructing calculus right kidney. No evidence of appendicitis. Bulky appearance to the cervix is nonspecific. Suggest correlation with Pap smear if not recently per formed.
--- NOTE | 2023-06-01 10:35 | ER ---
Nurse's Notes [facility] Name: Radha Huitron Age: 32 yrs Sex: Female : 1990 Arrival Date: 06/01/2023 Time: 08:32 Bed 19 Private MD: Diagnosis: Abdominal tenderness;Vomiting;Endometriosis, unspecified;Abnormal findings on diagnostic imaging of other specified body structures-PROMINENT CERVIX ON CT Presentation: 05/31 08:50 Chief complaint: RLQ pain and nausea x 3 days. Coronavirus screen: At this time, the hb client does not indicate any symptoms associated with coronavirus-19. Ebola Screen: No symptoms or risks identified at this time. Initial Sepsis Screen: Does the patient meet any 2 criteria? No. Patient's initial sepsis screen is negative. Does the patient have a suspected source of infection? No. Patient's initial sepsis screen is negative. Risk Assessment: Do you want to hurt yourself or someone else? Patient reports no desire to harm self or others. Onset of symptoms was May 30, 2023. 08:50 Method Of Arrival: Ambulatory 08:50 Acuity: EDITH 3 hb Triage Assessment: 08:51 General: Appears in no apparent distress. Behavior is calm, cooperative. Pain: Pain hb currently is 4 out of 10 on a pain scale. Neuro: Level of Consciousness is awake, alert, obeys commands, Oriented to person, place, time, situation. Cardiovascular: Patient's skin is warm and dry. Respiratory: Respiratory effort is even, unlabored, Respiratory pattern is regular, symmetrical. GI: Reports lower abdominal pain, nausea. 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 - Social history:: Smoking status: Patient denies any tobacco usage or history of. - Family history:: not pertinent. Screenin:48 [facility] ED Fall Risk Assessment (Adult) History of falling in the last 3 months, cp4 including since admission No falls in past 3 months (0 pts) Confusion or Disorientation No (0 pts) Intoxicated or Sedated No (0 pts) Impaired Gait No (0 pts) Mobility Assist Device Used No (0 pt) Altered Elimination No (0 pt) Score/Fall Risk Level 0 - 2 = Low Risk Oriented to surroundings, Maintained a safe environment, Assessed \T\ reinforced patient's understanding of fall precautions, Hourly rounding (assess needs \T\ fall precautionary measures) done. Abuse screen: Denies threats or abuse. Nutritional screening: No deficits noted. Tuberculosis screening: No symptoms or risk factors identified. Vital Signs: 08:50 BP 115 / 75; Pulse 83; Resp 16; Temp 98.4; Pulse Ox 99% on R/A; Weight 56.7 kg; Height hb 5 ft. 3 in. ; Pain 4/10; 10:00 BP 96 / 67; Pulse 64; Resp 18; Pulse Ox 100% ; cp4 08:50 Body Mass Index 22.14 (56.70 kg, 160.02 cm) hb 08:50 Pain Scale: Adult hb ED Course: 08:36 Patient arrived in ED. ra3 08:49 Lenin Benitez MD is Attending Physician. ruben 08:51 Triage completed. hb 08:51 Arm band placed on. hb 08:57 Radiology exam delayed due to test not completed at this time. mw3 09:19 Brook Rodriguez, RN is Primary Nurse. db 09:31 CBC with Diff Sent. bc6 09:31 CMP Sent. bc6 09:31 Lipase Sent. bc6 09:31 Test, Urine Sent. bc6 09:31 Urinalysis w/ reflexes Sent. bc6 09:31 Initial lab(s) drawn, by la, sent to lab. Inserted saline lock: 22 gauge in right bc6 forearm, using aseptic technique. Blood collected. 09:58 CT Stone Protocol In Process Unspecified. EDMS 10:32 Lizz Kaplan MD is Referral Physician. ruben 10:32 Gregoria Lindsay MD is Referral Physician. ruben 10:48 Bed in low position. Call light in reach. Side rails up X 1. Provided Education on: cp4 abdominal pain. 10:48 No provider procedures requiring assistance completed. intact, bleeding controlled, No cp4 redness/swelling at site. Pressure dressing applied. Administered Medications: 09:35 Drug: NS 0.9% IV 1000 ml IV at 1 bolus Per protocol; 1000 mL bolus Route: IV; Rate: 1 db bolus; Site: right antecubital; 09:35 Drug: Famotidine IVP 20 mg IVP once; dilute with 10 mL 0.9% NaCl; give over 2 minutes db Route: IVP; Site: right antecubital; 09:35 Drug: Ondansetron IVP 4 mg IVP once; over 2 minutes Route: IVP; Site: right antecubital;db 09:40 Not Given (Patient Refused): morphineor iv 2 mg IVP once over 4 mins db Medication: 10:48 VIS not applicable for this client. cp4 Outcome: 10:34 Discharge ordered by MD. ruben 10:48 Discharged to home ambulatory, cp4 10:48 Condition: stable 10:48 Discharge instructions given to patient, Instructed on discharge instructions, follow up and referral plans. medication usage, Demonstrated understanding of instructions, follow-up care, medications, Prescriptions given X 3, 10:50 Patient left the ED. cp4 Signatures: Dispatcher [employer] EDMS Lenin Benitez MD MD cha Baxter, Heather, RN RN Alisa Toribio mw3 Brook Rodriguez RN RN db Irlanda Flores6 Nessa Yung cp4 Ines Tao ra3 Corrections: (The following items were deleted from the chart) 09:40 09:35 morphine IVP or IV 2 mg IVP in right antecubital over 4 mins db db
--- NOTE | 2023-06-01 10:35 | EDPHYS ---
Physician Documentation [facility] Name: Radha Huitron Age: 32 yrs Sex: Female : 1990 Arrival Date: 06/01/2023 Time: 08:32 Bed 19 Private MD: ED Physician Lenin Benitez HPI: 05/31 10:26 This 32 yrs old Female presents to ER via Ambulatory with complaints of rt ruben side ppain with nausea. 10:26 The patient presents with abdominal pain in the right upper quadrant, right lower ruben quadrant. Onset: The symptoms/episode began/occurred 2 day(s) ago. The patient presents to the emergency department with nausea, vomiting, abdominal pain, of the posterior aspect of right lateral abdomen, anterior aspect of right lateral abdomen and right lower quadrant. Onset: The symptoms/episode began/occurred 2 day(s) ago. Possible causes: unknown. The symptoms do not radiate. Associated signs and symptoms: Pertinent positives: nausea and vomiting. 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 - Social history:: Smoking status: Patient denies any tobacco usage or history of. - Family history:: not pertinent. ROS: 10:26 Constitutional: Negative for fever, chills, and weight loss, Eyes: Negative for injury, ruben pain, redness, and discharge, ENT: Negative for injury, pain, and discharge, Neck: Negative for injury, pain, and swelling, Cardiovascular: Negative for chest pain, palpitations, and edema, Respiratory: Negative for shortness of breath, cough, wheezing, and pleuritic chest pain, Back: Negative for injury and pain, : Negative for injury, bleeding, discharge, and swelling, MS/Extremity: Negative for injury and deformity, Skin: Negative for injury, rash, and discoloration, Neuro: Negative for headache, weakness, numbness, tingling, and seizure, Psych: Negative for depression, anxiety, suicide ideation, homicidal ideation, and hallucinations, Allergy/Immunology: Negative for hives, rash, and allergies, Endocrine: Negative for neck swelling, polydipsia, polyuria, polyphagia, and marked weight changes, Hematologic/Lymphatic: Negative for swollen nodes, abnormal bleeding, and unusual bruising, 10:26 Abdomen/GI: Positive for abdominal pain, nausea and vomiting, of the right lower quadrant, Exam: 10:26 Constitutional: This is a well developed, well nourished patient who is awake, alert, ruben and in no acute distress. Head/Face: Normocephalic, atraumatic. Eyes: Pupils equal round and reactive to light, extra-ocular motions intact. Lids and lashes normal. Conjunctiva and sclera are non-icteric and not injected. Cornea within normal limits. Periorbital areas with no swelling, redness, or edema. ENT: Nares patent. No nasal discharge, no septal abnormalities noted. Tympanic membranes are normal and external auditory canals are clear. Oropharynx with no redness, swelling, or masses, exudates, or evidence of obstruction, uvula midline. Mucous membranes moist. Neck: Trachea midline, no thyromegaly or masses palpated, and no cervical lymphadenopathy. Supple, full range of motion without nuchal rigidity, or vertebral point tenderness. No Meningismus. Chest/axilla: Normal chest wall appearance and motion. Nontender with no deformity. No lesions are appreciated. Cardiovascular: Regular rate and rhythm with a normal S1 and S2. No gallops, murmurs, or rubs. Normal PMI, no JVD. No pulse deficits. Respiratory: Lungs have equal breath sounds bilaterally, clear to auscultation and percussion. No rales, rhonchi or wheezes noted. No increased work of breathing, no retractions or nasal flaring. Back: No spinal tenderness. No costovertebral tenderness. Full range of motion. Skin: Warm, dry with normal turgor. Normal color with no rashes, no lesions, and no evidence of cellulitis. MS/ Extremity: Pulses equal, no cyanosis. Neurovascular intact. Full, normal range of motion. Neuro: Awake and alert, GCS 15, oriented to person, place, time, and situation. Cranial nerves II-XII grossly intact. Motor strength 5/5 in all extremities. Sensory grossly intact. Cerebellar exam normal. Normal gait. Psych: Awake, alert, with orientation to person, place and time. Behavior, mood, and affect are within normal limits. 10:26 Abdomen/GI: Inspection: abdomen appears normal, Bowel sounds: normal, Palpation: mild abdominal tenderness, in the right lower quadrant, Liver: no appreciated palpable abnormalities, Hernia: not appreciated, Vital Signs: 08:50 BP 115 / 75; Pulse 83; Resp 16; Temp 98.4; Pulse Ox 99% on R/A; Weight 56.7 kg; Height hb 5 ft. 3 in. ; Pain 4/10; 10:00 BP 96 / 67; Pulse 64; Resp 18; Pulse Ox 100% ; cp4 08:50 Body Mass Index 22.14 (56.70 kg, 160.02 cm) hb 08:50 Pain Scale: Adult hb MDM: 08:49 Patient medically screened. ruben 10:30 Differential diagnosis: gastritis, pancreatitis, appendicitis, diverticulitis, viral ruben gastroenteritis, gastroenteritis, appendicitis, bowel obstruction, diverticulitis, Dysmenorrhea, Ectopic , Endometriosis, Irritable bowel syndrome, Menorrhagia, non-specific abd pain, Ureterolithiasis, urinary tract infection. Data reviewed: vital signs, nurses notes, lab test result(s), radiologic studies, CT scan. Consideration of Admission/Observation Escalation of care including admission/observation considered. I considered the following discharge prescriptions or medication management in the emergency department Medications were administered in the Emergency Department. See MAR. Independent interpretation of the following test(s) in the Emergency Department CT Scan: My interpretation is CT STONE NEG. Test considered but Not performed: Ultrasound NO ABD USG. Care significantly affected by the following chronic conditions: SP DANIELLA. 05/31 08:51 Order name: CBC with Diff [facility] 05/31 08:51 Order name: CMP; Complete Time: 10:17 ruben 05/31 08:51 Order name: Lipase; Complete Time: 10:17 ruben 05/31 08:51 Order name: Test, Urine; Complete Time: 09:43 ruben 05/31 08:51 Order name: Urinalysis w/ reflexes; Complete Time: 10:17 ruben 05/31 09:45 Order name: CBC Smear Scan [facility] 05/31 08:51 Order name: CT Stone Protocol; Complete Time: 10:17 [facility] 05/31 08:51 Order name: IV Saline Lock; Complete Time: 09:31 [facility] 05/31 08:51 Order name: Labs collected and sent; Complete Time: :31 ruben Administered Medications: 09:35 Drug: NS 0.9% IV 1000 ml IV at 1 bolus Per protocol; 1000 mL bolus Route: IV; Rate: 1 db bolus; Site: right antecubital; 09:35 Drug: Famotidine IVP 20 mg IVP once; dilute with 10 mL 0.9% NaCl; give over 2 minutes db Route: IVP; Site: right antecubital; 09:35 Drug: Ondansetron IVP 4 mg IVP once; over 2 minutes Route: IVP; Site: right antecubital;db 09:40 Not Given (Patient Refused): morphineor iv 2 mg IVP once over 4 mins db Disposition Summary: 06/01/23 10:34 Discharge Ordered Notes: Location: Home ruben Problem: new ruben Symptoms: have improved ruben Condition: Stable ruben Diagnosis - Abdominal tenderness ruben - Vomiting ruben - Endometriosis, unspecified ruben - Abnormal findings on diagnostic imaging of other specified body structures - ruben PROMINENT CERVIX ON CT Followup: ruben - With: Private Physician - When: 2 - 3 days - Reason: Recheck today's complaints, Continuance of care, Re-evaluation by your physician Followup: ruben - With: Lizz Kaplan MD - When: 2 - 3 days - Reason: Recheck today's complaints, Re-evaluation by your physician Followup: ruben - With: Gregoria Lindsay MD - When: 2 - 3 days - Reason: Recheck today's complaints, Re-evaluation by your physician Discharge Instructions: - Discharge Summary Sheet ruben - Abdominal Pain, Adult ruben - Endometriosis ruben - Nausea and Vomiting, Adult ruben - Abdominal Pain, Adult, [id number] ruben - Vomiting, Adult [facility] Forms: - Medication Reconciliation Form [facility] - Thank You Letter [facility] - Antibiotic Education [facility] - Prescription Opioid Use [facility] - Patient Portal Instructions [facility] - Leadership Thank You Letter [facility] Prescriptions: - diclofenac sodium 50 mg Oral tablet, delayed release (enteric coated) - take 1 tablet ORAL route every 8 hours; 30 tablet; Refills: 0, Product ruben Selection Permitted - ondansetron 4 mg Oral Tablet,disintegrating - take 1 tablet ORAL route every 6-8 hours; 20 tablet; Refills: 0, Product [facility] Selection Permitted - dicyclomine 20 mg Oral tablet - take 1 tablet ORAL route 4 times per day; 28 tablet; Refills: 0, Product ruben Selection Permitted Signatures: Dispatcher [employer] Lenin Nix MD MD cha Baxter, Heather, RN RN Brook Villavicencio RN RN db
[2023-06-01 10:55] LABS: Blood Morphology Comment NOTED (NOT SEEN); Microcytosis 2+; Platelet Estimate ADEQ; White Blood Cell Scan OK (OK)
[2023-06-01 11:35] VITALS: BP 96/67; TEMP 98.4; O2SAT 100
== END ==
LOC: ER 08:32
DX: R10.813 Right lower quadrant abdominal tenderness (principal); R11.10 Vomiting, unspecified; N80.9 Endometriosis, unspecified; R93.89 Abnormal findings on diagnostic imaging of other specified body structures; Z91.018 Allergy to other foods
CPT/HCPCS: 36415; 74176; 76377; 80053; 81001; 81025; 83690; 85025; 96374; 96375; 99284; J2270; J2405; J7030

== ENCOUNTER 2023-07-03 18:38 | Emergency (ER) | payer SELFPAY ==
[2023-07-03] MEDS ORDERED: NA CHLORIDE 0.9% 1,000 ML ONE (19:38)
[2023-07-03 19:44] LABS: Absolute Basophils 0.1 K/uL (0-0.5); Absolute Eosinophils 0.5 K/uL (0-0.5); Absolute Lymphocytes (CBC) 4.6 K/uL (0.7-4.9); Absolute Neutrophil 9.2 K/uL (1.8-8.0); Basophils % 0.9 % (0-1.3); Hematocrit 33.7 % (36.0-45.0); Hemoglobin 10.5 g/dL (12.0-15.0); MCH 18.4 pg (27.0-35.0); MCHC 31.2 g/dL (32.0-36.0); Monocytes % 6.3 % (3.3-12.3); Neutrophils % 59.8 % (41.7-73.7); Platelets 401 thou/uL (152-406); RBC Red Blood Cell Count 5.72 M/uL (3.86-4.86)
[2023-07-03 19:45] LABS: Specific Gravity 1.022 (1.005-1.030); Sqamous Epithelial 20-50 /HPF (None Seen); Urine Bacteria None Seen /HPF (<20); Urine Bilirubin NEGATIVE (Negative); Urine Blood Negative (Negative); Urine Clarity Extremely Turbid (Clear); Urine Color Light-Yellow (Yellow); Urine Crystals Unidentified Few /HPF (None Seen); Urine Culture Reflex Order NOT NEEDED; Urine Glucose NEGATIVE (Negative); Urine Ketones 3+ (Negative); Urine Micro Reflex YN NO BILL MICROSCOPIC; Urine Mucus 1+ /HPF (None Seen); Urine Nitrite NEGATIVE (Negative); Urine Protein TRACE (Negative); Urine RBC <5 /HPF (None Seen); Urine Urobilinogen Normal (Normal); Urine WBC <5 /HPF (<5)
[2023-07-03 20:05] LABS: ALT/SGPT 16 U/L (13-56); AST/SGOT 9 U/L (15-37); Albumin 3.7 g/dL (3.4-5.0); Albumin/Globulin Ratio 1.1 (1.1-1.8); Alkaline Phosphatase 70 U/L (45-117); Anion Gap 9.7 mEq/L (5.0-15.0); BUN Blood Urea Nitrogen 13 mg/dL (7-18); Bicarbonate 24 mEq/L (21-32); Bilirubin Direct 0.2 mg/dL (0-0.2); Bilirubin Indirect, Calculated 0.5 mg/dL (0.2-0.8); Bilirubin Total 0.7 mg/dL (0.2-1.0); Globulin 3.4 g/dL (2.3-3.5); Glomerular Filtration Rate 129 ml/min (=/>90); Glucose Level 101 mg/dL (74-106); Magnesium 1.8 mg/dL (1.6-2.4); NT PRO-BNP 15 pg/mL (<125); Potassium 3.7 mEq/L (3.5-5.1); Protein, Total 7.1 g/dL (6.4-8.2); Sodium Level 134 mEq/L (136-145); Thyroid Stimulating Hormone 0.867 uIU/mL (0.358-3.740); Troponin High Sensitivity < 3.0 pg/mL (<58.9)
[2023-07-03 20:51] LABS: Blood Morphology Comment NOTED (NOT SEEN); Hypochromasia 1+; Microcytosis 2+; Platelet Estimate ADEQ; White Blood Cell Scan OK (OK)
[2023-07-03 20:52] LABS: Ovalocytes SLIGHT; Poikilocytosis 1+; Polychromasia SLIGHT; Teardrop Cell FEW
--- NOTE | 2023-07-03 20:56 | ER ---
Nurse's Notes [facility] Name: Radha Huitron Age: 32 yrs Sex: Female : 1990 Arrival Date: 07/03/2023 Time: 18:38 Bed 5 Private MD: Diagnosis: Shortness of breath;Syncope Near Presentation: 07/02 18:51 Chief complaint: Patient states: Woke up from a nap about 30 minutes ago feeling ss disoriented and short of breath. Pt states, "I felt like my blood pressure was up" Pt reports she is 6 weeks . Coronavirus screen: Client denies travel out of the [place] in the last 14 days. Ebola Screen: Patient denies exposure to infectious person. Patient denies travel to an Ebola-affected area in the 21 days before illness onset. Initial Sepsis Screen: Does the patient meet any 2 criteria? No. Patient's initial sepsis screen is negative. Does the patient have a suspected source of infection? No. Patient's initial sepsis screen is negative. Risk Assessment: Do you want to hurt yourself or someone else? Patient reports no desire to harm self or others. Onset of symptoms was July 03, 2023. 18:51 Method Of Arrival: Ambulatory ss 18:51 Acuity: EDITH 3 ss Triage Assessment: 18:54 General: Appears in no apparent distress. Behavior is calm, cooperative, anxious. ss Neuro: Level of Consciousness is awake, alert, obeys commands. Respiratory: Airway is patent Respiratory effort is even, unlabored, Respiratory pattern is regular, symmetrical. Derm: Skin is pink, warm \\T\\ dry. normal. 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 - Infectious Disease History:: Denies. - Social history:: Smoking status: Patient denies any tobacco usage or history of. - Family history:: not pertinent. Screenin:42 [facility] ED Fall Risk Assessment (Adult) History of falling in the last 3 months, tm6 including since admission No falls in past 3 months (0 pts) Confusion or Disorientation No (0 pts) Intoxicated or Sedated No (0 pts) Impaired Gait No (0 pts) Mobility Assist Device Used No (0 pt) Altered Elimination No (0 pt) Score/Fall Risk Level 0 - 2 = Low Risk Oriented to surroundings, Maintained a safe environment. Abuse screen: Denies threats or abuse. Denies injuries from another. Nutritional screening: No deficits noted. Tuberculosis screening: No symptoms or risk factors identified. Assessment: 19:42 General: Appears in no apparent distress. Behavior is calm, cooperative. Pain: Denies tm6 pain. Neuro: Level of Consciousness is awake, alert, obeys commands, Oriented to person, place, time, situation, Reports weakness general. Neuro: Reports feeling disoriented earlier. Cardiovascular: Reports None Patient's skin is warm and dry. Respiratory: Airway is patent Respiratory effort is even, unlabored, Respiratory pattern is regular, symmetrical, Parent/caregiver reports the patient having shortness of breath at rest. GI: Abdomen is flat, non-distended. : No signs and/or symptoms were reported regarding the genitourinary system. EENT: No signs and/or symptoms were reported regarding the EENT system. Derm: No signs and/or symptoms reported regarding the dermatologic system. Musculoskeletal: No signs and/or symptoms reported regarding the musculoskeletal system. 20:36 Reassessment: Patient appears in no apparent distress at this time. Patient and/or tm6 family updated on plan of care and expected duration. Pain level reassessed. Patient is alert, oriented x 3, equal unlabored respirations, skin warm/dry/pink. 21:02 Reassessment: Patient and/or family updated on plan of care and expected duration. Pain tm6 level reassessed. Patient is alert, oriented x 3, equal unlabored respirations, skin warm/dry/pink. Patient states feeling better. Patient states symptoms have improved. Vital Signs: 18:51 BP 118 / 80; Pulse 84; Resp 16; Temp 99(O); Pulse Ox 100% on R/A; Weight 56.7 kg; ss Height 5 ft. 2 in. ; Pain 0/10; 19:42 BP 125 / 72; Pulse 84; Pulse Ox 99% on R/A; Pain 0/10; tm6 20:35 BP 130 / 87; Pulse 90; Pulse Ox 100% on R/A; Pain 0/10; tm6 21:01 BP 114 / 86; Pulse 93; Resp 19; Temp 98.1(TE); Pulse Ox 100% on R/A; Pain 0/10; tm6 18:51 Body Mass Index 22.86 (56.70 kg, 157.48 cm) ss 18:51 Pain Scale: Adult ss 19:42 Pain Scale: Adult tm6 20:35 Pain Scale: Adult tm6 21:01 Pain Scale: Adult tm6 Vitals: 19:42 Cardiac Rhythm Assessment Regular Sinus rhythm. tm6 ED Course: 18:41 Patient arrived in ED. rg4 18:44 Mason Gates MD is Attending Physician. rt 18:54 Triage completed. ss 18:54 Arm band placed on right wrist. ss 19:11 Zackary Rader, RN is Primary Nurse. tm6 19:28 Inserted saline lock: 20 gauge in right wrist, using aseptic technique. tm6 19:37 UAM Sent. tm6 19:37 TSH Sent. tm6 19:37 Basic Metabolic Panel Sent. tm6 19:37 Magnesium Sent. tm6 19:37 LFT's Sent. tm6 19:37 NT PRO-BNP Sent. tm6 19:37 CBC with Diff Sent. tm6 19:37 Troponin HS Sent. tm6 19:37 Initial lab(s) drawn, by me, sent to lab. Urine collected: clean catch specimen, clear, tm6 EKG done, by ED staff, reviewed by Mason Gates MD. 19:42 Patient has correct armband on for positive identification. Placed in gown. Bed in low tm6 position. Call light in reach. Side rails up X 1. Provided Education on: plan of care. Client placed on continuous cardiac and pulse oximetry monitoring. NIBP monitoring applied. warp changer on. Pulse ox on. NIBP on. Door closed. Noise minimized. Lights dimmed. Warm blanket given. 20:42 Attending Physician role handed off by Mason Gates MD [facility] 20:42 Lenin Benitez MD is Attending Physician. [facility] 21:02 No provider procedures requiring assistance completed. IV discontinued, intact, tm6 bleeding controlled, No redness/swelling at site. Pressure dressing applied. Administered Medications: 19:45 Drug: NS 0.9% IV 1000 ml IV at 1 bolus Per protocol; 1000 mL bolus Route: IV; Rate: 1 tm6 bolus; Site: right wrist; 20:55 Follow up: Response: No adverse reaction; IV Status: Completed infusion; IV Intake: rv 1000ml Medication: 19:42 VIS not applicable for this client. tm6 Intake: 20:55 IV: 1000ml; Total: 1000ml. rv Outcome: 20:55 Discharge ordered by . ruben 21:02 Discharged to home ambulatory, tm6 21:02 Condition: stable 21:02 Discharge instructions given to patient, Instructed on discharge instructions, Demonstrated understanding of instructions, follow-up care, 21:02 Patient left the ED. tm6 Signatures: Lenin Benitez MD MD cha Blanchard, Shelby, RN RN Alysa Zamora rg4 Sonu Levine, REENA RN Mason Levin MD MD rt Masterson, Tawney, RN RN tm6
--- NOTE | 2023-07-03 20:56 | EDPHYS ---
Physician Documentation [facility] Name: Radha Huitron Age: 32 yrs Sex: Female : 1990 Arrival Date: 07/03/2023 Time: 18:38 Bed 5 Private MD: KATHY Physician Lenin Benitez HPI: 07/02 19:36 This 32 yrs old Female presents to ER via Ambulatory with complaints of Weakness, rt Breathing Difficulty, 6 weeks . 19:36 Patient is a G1, P0 currently at 6 weeks per her report. States that she was rt doing well until this morning, she woke up feeling dizzy, shortness of breath, worse when she stood up. Reports some hot flashes. Denies nausea, vomiting currently. Denies any vaginal bleeding, discharge. Denies other acute complaints at this time, symptoms are moderate in severity, no other aggravating or alleviating factors.. 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 - Infectious Disease History:: Denies. - Social history:: Smoking status: Patient denies any tobacco usage or history of. - Family history:: not pertinent. ROS: 19:36 Constitutional: Negative for fever, chills, and weight loss, Cardiovascular: Negative rt for chest pain, palpitations, and edema, Abdomen/GI: Negative for abdominal pain, nausea, vomiting, diarrhea, and constipation, MS/Extremity: Negative for injury and deformity, Skin: Negative for injury, rash, and discoloration, Psych: Negative for depression, anxiety, suicide ideation, homicidal ideation, and hallucinations, 19:36 Respiratory: Positive for shortness of breath, Negative for cough, 19:36 Neuro: Positive for dizziness, Negative for altered mental status, Exam: 19:36 Constitutional: This is a well developed, well nourished patient who is awake, alert, rt and in no acute distress. Head/Face: Normocephalic, atraumatic. Chest/axilla: Normal chest wall appearance and motion. Nontender with no deformity. No lesions are appreciated. Cardiovascular: Regular rate and rhythm with a normal S1 and S2. No gallops, murmurs, or rubs. Normal PMI, no JVD. No pulse deficits. Respiratory: Lungs have equal breath sounds bilaterally, clear to auscultation and percussion. No rales, rhonchi or wheezes noted. No increased work of breathing, no retractions or nasal flaring. Abdomen/GI: Soft, non-tender, with normal bowel sounds. No distension or tympany. No guarding or rebound. No evidence of tenderness throughout. Skin: ' MS/ Extremity: Pulses equal, no cyanosis. Neurovascular intact. Full, normal range of motion. Neuro: Awake and alert, GCS 15, oriented to person, place, time, and situation. Cranial nerves II-XII grossly intact. Motor strength 5/5 in all extremities. Sensory grossly intact. Cerebellar exam normal. Normal gait. 19:36 ENT: Dry mucous membranes. 19:36 ECG was reviewed by the Attending Physician. Vital Signs: 18:51 BP 118 / 80; Pulse 84; Resp 16; Temp 99(O); Pulse Ox 100% on R/A; Weight 56.7 kg; ss Height 5 ft. 2 in. ; Pain 0/10; 19:42 BP 125 / 72; Pulse 84; Pulse Ox 99% on R/A; Pain 0/10; tm6 20:35 BP 130 / 87; Pulse 90; Pulse Ox 100% on R/A; Pain 0/10; tm6 21:01 BP 114 / 86; Pulse 93; Resp 19; Temp 98.1(TE); Pulse Ox 100% on R/A; Pain 0/10; tm6 18:51 Body Mass Index 22.86 (56.70 kg, 157.48 cm) ss 18:51 Pain Scale: Adult ss 19:42 Pain Scale: Adult tm6 20:35 Pain Scale: Adult tm6 21:01 Pain Scale: Adult tm6 MDM: 19:01 Patient medically screened. rt 20:13 Data reviewed: vital signs, nurses notes, lab test result(s), EKG. I considered the rt following discharge prescriptions or medication management in the emergency department Medications were administered in the Emergency Department. See MAR. Test considered but Not performed: X-ray: Patient wishes to forego chest x-ray at this time, symptoms have resolved, will return for x-ray should her symptoms return.. Counseling: I had a detailed discussion with the patient and/or guardian regarding the historical points, exam findings, and any diagnostic results supporting the discharge/admit diagnosis, lab results, the need for outpatient follow up, to return to the emergency department if symptoms worsen or persist or if there are any questions or concerns that arise at home. Response to treatment: the patient's symptoms have resolved after treatment. 07/02 19:17 Order name: Basic Metabolic Panel; Complete Time: 20:07 rt 07/02 19:17 Order name: CBC with Diff rt 07/02 19:17 Order name: LFT's; Complete Time: 20: rt 07/02 19:17 Order name: Magnesium; Complete Time: 20: rt 07/02 19:17 Order name: NT PRO-BNP; Complete Time: 20: rt 07/02 19:17 Order name: Troponin HS; Complete Time: 20: rt 07/02 19:17 Order name: TSH; Complete Time: 20: rt 07/02 19:17 Order name: UAM; Complete Time: 20: rt 07/02 20:52 Order name: CBC Smear Scan EDMS 07/02 19:17 Order name: Cardiac monitoring; Complete Time: 19:37 rt 07/02 19:17 Order name: EKG - Nurse/Tech; Complete Time: 19:37 rt 07/02 19:17 Order name: IV Saline Lock; Complete Time: 19:28 rt 07/02 19:17 Order name: Labs collected and sent; Complete Time: 19:28 rt 07/02 19:17 Order name: O2 Per Protocol; Complete Time: 19: rt 07/02 19:17 Order name: O2 Sat Monitoring; Complete Time: 19:28 rt EC:36 Rate is 93 beats/min. Rhythm is regular, Normal Sinus Rhythm with No ectopy. QRS [place] rt is Normal. [place] interval is normal. QRS interval is normal. QT interval is normal. No Q waves. T waves are Normal. No ST changes noted. Interpreted by me. Administered Medications: 19:45 Drug: NS 0.9% IV 1000 ml IV at 1 bolus Per protocol; 1000 mL bolus Route: IV; Rate: 1 tm6 bolus; Site: right wrist; 20:55 Follow up: Response: No adverse reaction; IV Status: Completed infusion; IV Intake: rv 1000ml Disposition Summary: 07/03/23 20:55 Discharge Ordered Notes: Location: Home ruben Problem: new ruben Symptoms: are resolved ruben Condition: Stable ruben Diagnosis - Shortness of breath ruben - Syncope Near ruben Followup: rt - With: Private Physician - When: 2 - 3 days - Reason: Discharge Instructions: - Discharge Summary Sheet rt - Near-Syncope rt - Shortness of Breath, Adult rt - First Trimester of rt Forms: - Medication Reconciliation Form ruben - Antibiotic Education ruben - Prescription Opioid Use ruben - Patient Portal Instructions ruben - Leadership Thank You Letter ruben Signatures: Dispatcher [employer] EDMS Lenin Benitez MD MD cha Blanchard, Shelby, RN RN ss Mason Gates MD MD rt Masterson, Tawney RN RN tm6 Sonu Levine RN rv Corrections: (The following items were deleted from the chart) 19:18 19:18 BASIC METABOLIC PANEL+C.LAB.BRZ ordered. EDMS EDMS 19:18 19:18 CBC+H.LAB.BRZ ordered. EDMS EDMS 19:18 19:18 HEPATIC FUNCTION+C.LAB.BRZ ordered. EDMS EDMS 19:18 19:18 MAGNESIUM+C.LAB.BRZ ordered. EDMS EDMS 19:18 19:18 PROBNP+C.LAB.BRZ ordered. EDMS EDMS 19:18 19:18 Troponin High Sensitivity+C.LAB.BRZ ordered. EDMS EDMS 19:18 19:18 THYROID STIMULAT HORMONE+C.LAB.BRZ ordered. EDMS EDMS 19:18 19:18 Urinalysis W/Microscopic+U.LAB.BRZ ordered. EDMS EDMS
[2023-07-03 22:17] VITALS: BP 114/86; TEMP 98.1; O2SAT 100
--- NOTE | 2023-07-07 13:08 | EKG ---
Test Date: 2023-07-03 Test Time: 19:33:10 Media Buyer: JANET MEASUREMENT RESULTS: Intervals: Rate: 93 [place]: 138 QRSD: 78 QT: 368 QTc: 457 [place]: P: 69 [place]: 138 QRS: 77 T: 55 INTERPRETIVE STATEMENTS: Normal sinus rhythm with sinus arrhythmia Normal ECG No previous ECG available for comparison Electronically Signed On 07-07-23 12:58:56 CDT by Jalil Ruiz
== END 2023-07-03 21:02 | disposition home or self-care (01) ==
LOC: ER 18:38
DX: O26.891 Other specified pregnancy related conditions, first trimester (principal); R55 Syncope and collapse; R06.02 Shortness of breath; Z3A.01 Less than 8 weeks gestation of pregnancy; Z91.02 Food additives allergy status; Z91.018 Allergy to other foods
CPT/HCPCS: 36415; 80048; 80076; 81001; 83735; 83880; 84443; 84484; 85025; 93005; J7030

== ENCOUNTER 2024-03-05 17:02 | Emergency (ER) | payer OTHER ==
--- OUTSIDE RECORDS SUMMARY | 2024-03-05 17:06 | XMS REPORT | Continuity of Care Document ---
Author Name Unknown Address [address] [facility] [place] [address] [facility] Address [address] [facility] [address] [place] [address] Care Team Providers Care Requisition Approver Name Role Phone MICHOACANO WATERMAN Primary Care Physician Gordon Al Attending Clinician MANDO Lang Attending Clinician MANDO Irving Attending Clinician Cyndi QUEEN Daniela Attending Clinician [phone] Mando Klein MD Attending Clinician + [phone] BETTY IGLESIAS Attending Clinician Unavailable Betty Iglesias PA-C Attending Clinician [phone] Unknown, Attending Attending Clinician Michoacano Macias MD Attending Clinician [phone] RICO PINEDA Attending Clinician Rico De La Rosa Attending Clinician + [phone] Gordon Almeida Admitting Clinician MANDO Lang Admitting Clinician Mando Irving MD Admitting Clinician + [phone] Payers Payer Name Policy Type Policy Number Effective Date Expirati on Date Source [facility] [place] [facility] [id number] 2023 00[place] [facility] [id number] 2023 00:00:00 Problems Condition Name Condition Details Condition Category Status Onset Date Resolution Date Last Treatment Date Treating Clinician Comments Source 30 weeks gestation of 30 weeks gestation of Disease Active 2023-03 0-15 00:00: 00 [facility] Vaginal bleeding in , third trimester Vaginal bleeding in , third trimester Disease Active 2023-03 0-15 00:00: 00 [facility] Celiac disease Celiac disease Disease Active 7 00:00: 00 [facility] Allergies, Adverse Reactions, Alerts Allergy Name Allergy Type Status Severity Reaction(s) Onset Date Inactive Date Treating Clinician Comments Source No Known Drug Allergie s DA Active U 2023-03 2-12 00:00: 00 [facility] WHEAT DRUG INGREDI Active N/V 2023-03 0-15 00:00: 00 [facility] DYE DRUG INGREDI Active Anxiety 2023-03 0-15 00:00: 00 [facility] Dye Propensi ty to adverse reaction s Active Anxiety 2023-03 015 00:00: 00 [facility] Wheat Propensi ty to adverse reaction s Active Nausea and/or Vomiting 2023-03 0-15 00:00: 00 Abdominal cramping [facility] NO KNOWN ALLERGIE S Drug Class Active [facility] Social History Social Habit Start Date Stop Date Quantity Comments Source ASSERTION 2023-06-04 00:00:00 [facility] to SARS-CoV-2 (event) 2021-09-24 00:00:00 2021-10-04 18:09:00 Yes [facility] Sex assigned at 1990 00:00:00 1990 00:00:00 [facility] Smoking Status Start Date Stop Date Source Tobacco smoking consumption unknown [facility] Medications Ordered Medication Name Filled Medication Name Start Date Stop Date Current Medication? Ordering Clinician Indication Dosage Frequency Signature (SIG) Comments Components Source vit no.124/iron /folic ( VITAMIN ORAL) 2023-03 0-15 15:52: 11 Yes 1{tbl} Take 1 tablet by mouth in the morning. [facility] erythromyci n 5 mg/gram (0.5 %) ophthalmic ointment 07-23 00:00: 00 Yes [id number] 9103 .5[in_u s] Place 0.5 Inches in right eye 4 (four) times daily. [facility] proMETHazin e 12.5 mg suppository 10-05 00:00: 00 10-08 04:59 :00 No [id number] 12.5mg Insert 1 Suppositor y into rectum every 6 (six) hours as needed for Nausea and Vomiting (N/V) for up to 2 days. [facility] nirmatrelvi r-ritonavir (PAXLOVID, EUA,) 150 mg x 2- 100 mg tablet 10-04 00:00: 00 07-23 00:00 :00 No [id number] 3{tbl} Take 3 tablets by mouth in the morning and 3 tablets in the evening. [facility] proMETHazin e 12.5 mg suppository 10-04 00:00: 00 10-04 00:00 :00 No [id number] 12.5mg Insert 1 Suppositor y into rectum every 6 (six) hours as needed for Nausea and Vomiting (N/V) for up to 3 days. [facility] desog-e.est radioL/e.es tradioL (ROBERTO CARLOS, ,) 0.15-0.02 mgx21 /0.01 mg x 5 per tablet 2019-03 2- 00:00: 00 10-04 00:00 :00 No [id number] 1{tbl} Take 1 tablet by mouth daily. [facility] Vital Signs Vital Name Observation Time Observation Value Comments S any Systolic blood pressure 2023-12-23 19:30:00 121 mm[Hg] [facility] Diastolic blood pressure 2023-12-23 19:30:00 69 mm[Hg] [facility] Heart rate 2023-12-23 19:30:00 82 /min [facility] Oxygen saturation in Arterial blood by Pulse oximetry 2023-12-23 19:30:00 100 /min [facility] Body temperature 2023-12-23 15:45:00 36.94 Deborah [facility] Respiratory rate 2023-12-23 15:45:00 18 /min [facility] Body height 2023-12-23 15:33:00 157.5 cm [facility] Body weight 2023-12-23 15:33:00 70.897 kg [facility] BMI 2023-12-23 15:33:00 28.59 kg/m2 [facility] Systolic blood pressure 2023-07-24 14:17:00 110 mm[Hg] [facility] Diastolic blood pressure 2023-07-24 14:17:00 73 mm[Hg] [facility] Heart rate 2023-07-24 14:17:00 77 /min [facility] Body temperature 2023-07-24 14:17:00 36.39 Deborah [facility] Respiratory rate 2023-07-24 14:17:00 16 /min [facility] Body weight 2023-07-24 14:17:00 55.293 kg [facility] BMI 2023-07-24 14:17:00 22.30 kg/m2 [facility] Oxygen saturation in Arterial blood by Pulse oximetry 2023-07-24 14:17:00 98 /min [facility] Systolic blood pressure 2021-10-04 23:22:00 104 mm[Hg] [facility] Diastolic blood pressure 2021-10-04 23:22:00 70 mm[Hg] [facility] Heart rate 2021-10-04 23:22:00 73 /min [facility] Body temperature 2021-10-04 23:22:00 37.39 Deborah [facility] Respiratory rate 2021-10-04 23:22:00 18 /min [facility] Body height 2021-10-04 23:22:00 157.5 cm [facility] Body weight 2021-10-04 23:22:00 51.71 kg [facility] BMI 2021-10-04 23:22:00 20.85 kg/m2 [facility] Oxygen saturation in Arterial blood by Pulse oximetry 2021-10-04 23:22:00 97 /min [facility] Procedures Procedure Date / Time Performed Performing Clinicia n Source EXTRACTION OF PRODUCTS OF CONCEPTION, LOW, OPEN AP 2024-02-19 00:00:00 ALRME [facility] HIV 1/2 AG-AB WITH REFLEX 2023-12-23 18:44:00 Olya Mckay [facility] CBC WITH DIFF 2023-12-23 18:44:00 Olya Mckay [facility] URINALYSIS 2023-12-23 18:44:00 Olya Mckay [facility] HB ABO GROUPING 2023-12-23 18:44:00 [facility] - WET PREP 2023-12-23 18:44:00 Olya Mckay [facility] US PELVIS > 14 WEEKS 2023-12-23 18:07:51 Olya Mckay [facility] ADC ONLY - FERN TEST 2023-12-23 16:46:00 Zak Mckay [facility] POCT SARS-COV-2 ANTIGEN (BINAX NOW) 2021-10-04 23:37:00 Rico Pineda [facility] Encounters Start Date/Time End Date/Time Encounter Type Admission Type Attending Clinicians Care Facility Care Department Encounter ID Source 2024-02-26 00:00:00 Inpatient Gordon Graham [facility] LD [id number] [facility] 2023-12-23 15:52:21 Outpatient X [facility] [id number] [facility] 2024-02-19 00:31:00 2024-02-23 15:36:00 Inpatient MATEUSZ JusJesusita delarosacharly [facility] OBPP [id number] 36 [facility] 2023-12-23 10:35:00 2023-12-23 15:24:00 Outpatient X FAJARDO-TAWANA S, MANDO FAJARDO-TAWANA S, MANDO [facility] [id number] [facility] 2023-12-23 10:35:00 2023-12-23 15:24:00 Emergency Daniela Angeles FajardoMarisolcamilla ford, [facility] AT [facility] [id number] [facility] 2023-07-24 09:00:00 2023-07-24 09:37:59 Outpatient R BETTY IGLESIAS [facility] [id number] [facility] 2023-07-24 09:00:00 2023-07-24 09:37:59 Urgent Care Betty Iglesias Unknown, Attending [facility] 1..840.114 [id number] [facility] 2023-06-05 00:00:00 2023-06-05 00:00:00 Telephone Michoacano Waterman [facility] 1..840.114 [id number] [facility] 2021-10-04 18:00:00 2021-10-04 18:38:01 Outpatient R RICO PINEDA [facility] [id number] [facility] 2021-10-04 18:00:00 2021-10-04 18:38:01 Urgent Care Rico Pineda [facility] 1..840.114 [id number] [facility] 2021-10-04 00:00:00 2021-10-04 00:00:00 Telephone Rico Pineda [facility] [id number] [facility] Results Test Description Test Time Test Comments Results Result Co mments Source CBC W/AUTO [id number] 05:15:00* Test Item Value Reference Range Interpretation Comme nts WHITE BLOOD CELL (test code = WBC) 24.3 K/mm3 6.5-12.3 HH RESULTS CALLED Linsey ORELLANA .READ BACK & CONFIRMED? YES .BY [id number] 02/21/24 0510.Results verified by repeat analysis RED BLOOD CELL (test code = RBC) 4.02 M/mm3 3.51-4.69 N HEMOGLOBIN (test code = HGB) 8.2 g/dL 10.1-13.8 L HEMATOCRIT (test code = HCT) 25.9 % 32.5-41.8 L MEAN CELL VOLUME (test code = MCV) 64.4 fL 84.6-96.6 L MEAN CELL HGB (test code = MCH) 20.4 pg 27.3-33.9 L MEAN CELL HGB CONCETRATION (test code = MCHC) 31.7 gm/dL 32.0-34.2 L RED CELL DISTRIBUTION WIDTH (test code = RDW) 16.1 % 12.2-16.3 N PLATELET COUNT (test code = PLT) 232 K/mm3 134-363 N MEAN PLATELET VOLUME (test code = MPV) 10.4 fL 9.2-12.7 N NEUTROPHIL % (test code = NT%) 86.2 % 57.9-77.3 H LYMPHOCYTE % (test code = LY%) 6.9 % 14.5-29.7 L MONOCYTE % (test code = MO%) 4.2 % 3.6-10.2 N EOSINOPHIL % (test code = EO%) 0.5 % 0.0-3.0 N BASOPHIL % (test code = BA%) 0.3 % 0.1-0.9 N NEUTROPHIL # (test code = NT#) 21.0 K/mm3 LYMPHOCYTE # (test code = LY#) 1.7 K/mm3 MONOCYTE # (test code = MO#) 1.0 K/mm3 EOSINOPHIL # (test code = EO#) 0.11 K/mm3 BASOPHIL # (test code = BA#) 0.1 K/mm3 HGB [id number] 07:35:00* Test Item Value Reference Range Interpretation Comme nts HEMOGLOBIN (test code = HGB) 8.4 g/dL 10.1-13.8 L HEMATOCRIT (test code = HCT) 26.7 % 32.5-41.8 L COMPREHENSIVE METABOLIC [id number] 10:02:00* Test Item Value Reference Range Interpretation Comme nts SODIUM (test code = NA) 137 mEq/L 136-145 N POTASSIUM (test code = K) 4.5 mEQ/L 3.4-4.5 N Please note new normal range as of July 2023 CHLORIDE (test code = CL) 106 mEq/L 98-107 N Please note new normal range as of July 2023 CARBON DIOXIDE (test code = CO2) 22 mEq/L 22-31 N ANION GAP (test code = GAP) 13.5 10-20 N GLUCOSE (test code = GLU) 97 mg/dL 74-106 N Please note new normal range as of July 2023 BLOOD UREA NITROGEN (test code = BUN) 14 mg/dL 8-23 N Please note ne w normal range as of July 2023 CREATININE (test code = CREAT) 0.7 mg/dL 0.55-1.02 N Please note new normal range as of July 2023 TOTAL PROTEIN (test code = PROT) 5.2 g/dL 5.7-8.2 L Please note new normal range as of July 2023 ALBUMIN (test code = ALB) 3.2 g/dL 3.2-4.8 N Please note new normal range as of July 2023 CALCIUM (test code = CA) 8.2 mg/dL 8.3-10.6 L Please note new normal range as of July 2023 BILIRUBIN TOTAL (test code = BILT) 0.7 mg/dL 0.3-1.2 N Please note n ew normal range as of July 2023 SGOT/AST (test code = AST) 26 units/L < 34 SGPT/ALT (test code = ALT) 11 units/L 10-49 N ALKALINE PHOSPHATASE TOTAL (test code = ALKP) 126 units/L 46-116 H Please note n ew normal range as of July 2023 GLOMERULAR FILTRATION RATE (test code = GFR) 117.77 ml/min >60 N The Glomerular Filtration Rate is a calculated parameterbased on serum Creatinine, patient age and sex. GFR valuesless than 60 mL/min/1.73 square meters are indicative ofChronic Kidney Disease. Values less than 15 mL/min/1.73square meters indicate Kidney failure. The calculation forGFR is based on the CKD-EPI (2020) calculation. This formulais race indifferent and is the recommended formula for GFRby the National Kidney Foundation for Adults.The GFR will not calculate if the sex is unknown or if thepatient's age is <18 years. LACTIC [id number] 09:53:00* Test Item Value Reference Range Interpretation Comme [facility] LACTIC ACID (test code = LACT) 1.8 mmol/L 0.5-2.2 N PROTHROMBIN [id number] 09:50:00* Test Item Value Reference Range Interpretation Comme [facility] PROTHROMBIN TIME PATIENT (te st code = PTP) 11.0 secs 9.8-13.3 N IS PATIENT ON ANTICOAGULANTS ? NINTERNATIONAL NORMAL [id number] 09:50:00* Test Item Value Reference Range Interpretation Comme [facility] INTERNATIONAL NORMAL RATIO (test code = INR) 0.96 The INR is to be used only for monitoring oral anticoagulanttherapy. INDICATION INR VALUE 1. Prophylaxis including high risk surgery 2.0 - 2.52. Deep venous thrombosis. Pulmonary embolism. Atrial fibrillation or bioprosthetic heart valves 2.0 - 3.03. Mechanical heart valves or recurrent systemic embolism. 3.0 - 3.5 IS PATIENT ON ANTICOAGULANTS ? NTHROMBOPLASTIN TIME [id number] 09:50:00* Test Item Value Reference Range Interpretation Comme [facility] THROMBOPLASTIN TIME PARTIAL (test code = PTT) 29 secs 26.2-37.2 N IS PATIENT ON ANTICOAGULANTS ? NCBC W/AUTO [id number] 09:49:00* Test Item Value Reference Range Interpretation Comme [facility] WHITE BLOOD CELL (test code = WBC) 24.7 K/mm3 6.5-12.3 HH RESULTS CALLED Linsey RATLIFF RN.READ BACK & CONFIRMED? YES.BY [id number] 02/19/24 0970.Results verified by repeat analysis RED BLOOD CELL (test code = RBC) 4.83 M/mm3 3.51-4.69 H HEMOGLOBIN (test code = HGB) 9.6 g/dL 10.1-13.8 L HEMATOCRIT (test code = HCT) 30.7 % 32.5-41.8 L MEAN CELL VOLUME (test code = MCV) 63.6 fL 84.6-96.6 L MEAN CELL HGB (test code = MCH) 19.9 pg 27.3-33.9 L MEAN CELL HGB CONCETRATION (test code = MCHC) 31.3 gm/dL 32.0-34.2 L RED CELL DISTRIBUTION WIDTH (test code = RDW) 16.0 % 12.2-16.3 N PLATELET COUNT (test code = PLT) 248 K/mm3 134-363 N IMMATURE PLATELET FRACTION (test code = IPF) 7.5 % 0.0-10.8 N MEAN PLATELET VOLUME (test code = MPV) 11.4 fL 9.2-12.7 N NEUTROPHIL % (test code = NT%) 85.6 % 57.9-77.3 H LYMPHOCYTE % (test code = LY%) 6.2 % 14.5-29.7 L MONOCYTE % (test code = MO%) 6.4 % 3.6-10.2 N EOSINOPHIL % (test code = EO%) 0.0 % 0.0-3.0 N BASOPHIL % (test code = BA%) 0.3 % 0.1-0.9 N NEUTROPHIL # (test code = NT#) 21.1 K/mm3 LYMPHOCYTE # (test code = LY#) 1.5 K/mm3 MONOCYTE # (test code = MO#) 1.6 K/mm3 EOSINOPHIL # (test code = EO#) 0.01 K/mm3 BASOPHIL # (test code = BA#) 0.1 K/mm3 RBC MORPHOLOGY REQUIRED (test code = RBCM) ABNORMAL NORMAL MICRO=1+HYPO= 1+ UA RFLX MICR CULT IF [id number] 09:45:00* Test Item Value Reference Range Interpretation Comme nts UA COLOR (test code = COLU) YELLOW YELLOW UA APPEARANCE (test code = APPU) CLEAR CLEAR UA GLUCOSE DIPSTICK (test co de = DGLUU) NEGATIVE NEG UA BILIRUBIN DIPSTICK (test code = BILU) NEGATIVE NEG UA KETONE DIPSTICK (test cod e = KETU) NEGATIVE NEG UA SPECIFIC GRAVITY (test co de = SGU) 1.006 1.001-1.035 N UA BLOOD DIPSTICK (test code = RENY) 3+ NEG A UA PH DIPSTICK (test code = NIRALI) 7.0 5-9 UA PROTEIN DIPSTICK (test co de = PROU) NEGATIVE NEG UA UROBILINIOGEN DIPSTICK (test code = URO) NEGATIVE mg/dL NEG UA NITRITE DIPSTICK (test co de = PRISCILLA) NEG NEG UA LEUKOCYTE ESTERASE DIPSTI CK (test code = LEUU) TRACE NEG A UA WBC (test code = WBCU) 11-15 #/hpf NONE SEEN A UA RBC (test code = RBCU) 21-30 #/hpf NONE SEEN A UA EPITHELIAL CELLS (test co de = EPIU) RARE #/HPF RARE-FEW UA BACTERIA (test code = BACU) RARE /HPF RARE-FEW Cath type: Temporary/indwellingIN date: 02/19/24IN time: 311Elapse time: 4 Hrs 59 MinsIndication for culture: Temperature > 100.4 FSpecimen Description: CATHETERCath Status: Less than 7 daysAB HIV 1 02:41:00* Test Item Value Reference Range Interpretation Comme nts AB HIV 1 2 (test code = GVX34WN) NONREACTIVE NONREACTIVE Done by [employer] e[employer] 4th Gen HIV Ag/Ab Combo Screen AG HEPATITIS B [id number] 02:41:00* Test Item Value Reference Range Interpretation Comme nts AG HEPATITIS B SURFACE (test code = HBSAG) NON REACTIVE NONREACTIVE AB HEPATITIS C [id number] 02:41:00* Test Item Value Reference Range Interpretation Comme nts AB HEPATITIS C (test code = HCVAB) NONREACTIVE NONREACTIVE SIGNAL TO CUTOFF (test code = CUTOFF) 0.05 <0.80 N AB [id number] 02:41:00* Test Item Value Reference Range Interpretation Comme nts AB TREPONEMA (test code = TREPAB) NONREACTIVE NONREACTIVE CBC W/AUTO [id number] 02:05:00* Test Item Value Reference Range Interpretation Comme nts WHITE BLOOD CELL (test code = WBC) 25.9 K/mm3 6.5-12.3 HH RESULTS CALLED T O .READ BACK & CONFIRMED? .BY [id number] 02/19/24 0132.RESULTS CALLED TO CLEMENTE PAUL RN.READ BACK & CONFIRMED? YES.BY [id number] 02/19/24 0136.Results verified by repeat analysis RED BLOOD CELL (test code = RBC) 5.63 M/mm3 3.51-4.69 H HEMOGLOBIN (test code = HGB) 11.1 g/dL 10.1-13.8 N HEMATOCRIT (test code = HCT) 35.7 % 32.5-41.8 N MEAN CELL VOLUME (test code = MCV) 63.4 fL 84.6-96.6 L MEAN CELL HGB (test code = MCH) 19.7 pg 27.3-33.9 L MEAN CELL HGB CONCETRATION (test code = MCHC) 31.1 gm/dL 32.0-34.2 L RED CELL DISTRIBUTION WIDTH (test code = RDW) 17.0 % 12.2-16.3 H PLATELET COUNT (test code = PLT) 307 K/mm3 134-363 N NEUTROPHIL % (test code = NT%) 85.4 % 57.9-77.3 H LYMPHOCYTE % (test code = LY%) 8.0 % 14.5-29.7 L MONOCYTE % (test code = MO%) 4.6 % 3.6-10.2 N EOSINOPHIL % (test code = EO%) 0.2 % 0.0-3.0 N BASOPHIL % (test code = BA%) 0.3 % 0.1-0.9 N NEUTROPHIL # (test code = NT#) 22.1 K/mm3 LYMPHOCYTE # (test code = LY#) 2.1 K/mm3 MONOCYTE # (test code = MO#) 1.2 K/mm3 EOSINOPHIL # (test code = EO#) 0.05 K/mm3 BASOPHIL # (test code = BA#) 0.1 K/mm3 RBC MORPHOLOGY REQUIRED (test code = RBCM) ABNORMAL NORMAL MICRO:2+HYPO:2+A NISO: 1+POLY:1+ PLATELET MORPHOLOGY REQUIRED (test code = PLTMR) NORMAL NORMAL Cbc with [id number] 20:32:27* Test Item Value Reference Range Interpretation Comme nts WBC (test code = 6690-2) 14.74 4.30-11.10 H RBC (test code = 789-8) 5.43 3.93-5.25 H HGB (test code = 718-7) 10.9 g/dL 11.6-15.0 L HCT (test code = 4544-3) 35.4 % 35.7-45.2 L MCV (test code = 787-2) 65.2 fL 80.6-95.5 L MCH (test code = 785-6) 20.1 pg 25.9-32.8 L MCHC (test code = 786-4) 30.8 g/dL 31.6-35.1 L RDW-SD (test code = 32084-0) 36.9 fL 39.0-49.9 L RDW-CV (test code = 788-0) 17.2 % 12.0-15.5 H PLT (test code = 777-3) 291 166-358 MPV (test code = 29797-7) Not Measured IPF % (test code = 6650185815) 9.2 % 1.3-7.7 H Platelet count measured by fluorescence method. NRBC/100 WBC (test code = 9790911316) 0.1 0.0-10.0 NRBC x10^3 (test code = 9227631693) 0.02 See_Comment [Automated BidModoa ge] The system which generated this result transmitted reference range: 10*3/?L. The reference range was not used to interpret this result as normal/abnormal. GRAN MAT (NEUT) % (test code = 770-8) 73.0 % IMM GRAN % (test code = 4174000000) 1.20 % LYMPH % (test code = 736-9) 17.8 % MONO % (test code = 5905-5) 4.0 % EOS % (test code = 713-8) 3.1 % BASO % (test code = 706-2) 0.9 % GRAN MAT x10^3(ANC) (test code = 6079381684) 10.77 10*3/uL 1.88-7.09 H IMM GRAN x10^3 (test code = 9556289786) 0.17 10*3/uL 0.00-0.06 H LYMPH x10^3 (test code = 731-0) 2.63 10*3/uL 1.32-3.29 MONO x10^3 (test code = 742-7) 0.59 10*3/uL 0.33-0.92 EOS x10^3 (test code = 711-2) 0.45 10*3/uL 0.03-0.39 H BASO x10^3 (test code = 704-7) 0.13 10*3/uL 0.01-0.07 H Lab Interpretation (test code = 92366-7) [facility] with [id number] 20:26:26* Test Item Value Reference Range Interpretation Comme nts HIV Semi-quantitative (test code = 72693-6) 0.16 Negative VANNA (test code = VANNA) Non-reactive for HIV-1 antigen and HIV-1/HIV-2 antibodies. ?No laboratory evidence of HIV infection. ?Repeat in 2-4 weeks if acute HIV infection is suspected. [facility] [id number] 19:14:00* Test Item Value Reference Range Interpretation Comme nts ABO & RH (test code = 20) A POSITIVE IAT (test code = 1185) Negative [facility] 14 [id number] 18:54:09EXAM: US PELVIS > 14 WEEKS DATE: 12/23/2023 11:45 AM INDICATION: COMPARISON:None available. TECHNIQUE: Transabdominal pelvic ultrasound was performed. M-mode wasutilized to document cardiac activity. FINDINGS: There is a single live intrauterine gestation.Presentation: CephalicPlacenta: PosteriorCord insertion: Three-vessel cordPrevia: NoneCervix: Closed approximately 3.5 cmAFI: (greater than 24 weeks): 11.9 cmBPD: 7.6 cm 30 weeks 5 daysHC: 25.8 cm 28 weeks 1 dayAC: 27.0 cm 31 week 1 dayFL: 5.7 cm 30 weeks 0 dayUltrasound calculated gestational age: 30 week 0 dayEstimated Weight: 1565 gm Heart Rate: 156 bpm ANATOMY SPECIFICALLY EVALUATED:HeadCalvarium: NormalHeartNormal heart rate of 156AbdomenThree-vessel cord: NormalSpineIncompletely visualizedExtremitiesIncompletely visualized [facility]PO[facility] SARS-COV-2 ANTIGEN (BINAX NOW)2021-10-04 23:37:00* Test Item Value Reference Range Interpretation Comme nts POCT SARS-COV-2 ANTIGEN (test code = 5076) Positive Not Detected A On board controls acceptable with C Line (test code = 3574) Yes VANNA (test code = VANNA) accurate developme nt and interpretation of all internal controls Lab Interpretation (test code = 56586-0) Abnormal [facility]
[2024-03-05] MEDS ORDERED: NA CHLORIDE 0.9% 1,000 ML ONE (17:55)
[2024-03-05] MEDS ORDERED: KETOROLAC 30 MG/ML INJ ONE (17:55)
[2024-03-05] MEDS ORDERED: ONDANSETRON 4 MG/2 ML VIAL ONE (17:55)
[2024-03-05 18:07] LABS: Specific Gravity 1.005 (1.005-1.030)
[2024-03-05 18:09] LABS: Absolute Eosinophils 0.4 K/uL (0-0.5); Absolute Lymphocytes (CBC) 2.6 K/uL (0.7-4.9); Absolute Monocytes 0.7 K/uL (0.1-1.3); Absolute Neutrophil 11.2 K/uL (1.8-8.0); Basophils % 0.3 % (0-1.3); Eosinophils % 2.7 % (0-4.4); Hematocrit 30.6 % (36.0-45.0); Hemoglobin 9.6 g/dL (12.0-15.0); Lymphocytes % 17.2 % (15.3-44.8); MCH 19.1 pg (27.0-35.0); MCHC 31.2 g/dL (32.0-36.0); MCV 61.1 fL (80-100); MPV 6.6 fL (7.6-11.3); Neutrophils % 74.8 % (41.7-73.7); Nucleated Red Blood Cells % 0.1 % (0-0); Platelets 1140 thou/uL (152-406); RBC Red Blood Cell Count 5.01 M/uL (3.86-4.86); Red Cell Distribution Width 15.4 % (12.1-15.2); Specific Gravity 1.005 (1.005-1.030); Sqamous Epithelial <5 /HPF (None Seen); Urine Bacteria <20 /HPF (<20); Urine Bilirubin NEGATIVE (Negative); Urine Blood 1+ (Negative); Urine Clarity Extremely Turbid (Clear); Urine Color Colorless (Yellow); Urine Crystals Unidentified Few /HPF (None Seen); Urine Culture Reflex Order REFLEXED; Urine Glucose NEGATIVE (Negative); Urine Ketones NEGATIVE (Negative); Urine Microscopic Reflex YN ORDER UMIC; Urine Nitrite NEGATIVE (Negative); Urine Protein NEGATIVE (Negative); Urine RBC <5 /HPF (None Seen); Urine Urobilinogen Normal (Normal); Urine WBC 20-50 /HPF (<5); Urine WBC Clump Occasional /HPF (None Seen); Urine Yeast (Budding) Occasional /HPF (None Seen); Urine pH 6.5 (5.0-7.0)
[2024-03-05 18:23] LABS: Albumin 2.5 g/dL (3.4-5.0); Albumin/Globulin Ratio 0.5 (1.1-1.8); Anion Gap 8.7 mEq/L (5.0-15.0); Bilirubin Total 0.3 mg/dL (0.2-1.0); Globulin 5.4 g/dL (2.3-3.5); Potassium 3.7 mEq/L (3.5-5.1); Protein, Total 7.9 g/dL (6.4-8.2)
[2024-03-05 18:52] LABS: Anisocytosis 2+; Blood Morphology Comment NOTED (NOT SEEN); Hypochromasia 1+; Microcytosis 1+; Platelet Estimate INCR; Polychromasia 1+; White Blood Cell Scan OK (OK)
[2024-03-05] MEDS ORDERED: METHOCARBAMOL 1,000 MG/10 ML VIAL ONE (19:27)
[2024-03-05] MEDS ORDERED: CEFTRIAXONE 1000 MG/VIAL ONE (19:27)
[2024-03-05] MEDS ORDERED: NA CHLORIDE 0.9% 100 ML ONE (19:28)
--- NOTE | 2024-03-05 20:20 | RAD REPORT ---
EXAMINATION: CT Abdomen Pelvis W/Wo Contrast CLINICAL INDICATION: Female, 33 years old. [facility] MAIN right flank pain Bed Name: 6 TECHNIQUE: CT abdomen and pelvis was performed, before and after the administration of IV contrast, a s per department protocol. Axial, sagittal and coronal reconstructions were obtained. One or more of the following dose reduction techniques were used: Automated exposure control, adjustment of the m A and/or kV according to patient size, and/or iterative reconstruction. Unless otherwise specified, incidental findings do not require dedicated imaging follow-up. COMPARISON: 06/01/2023 FINDINGS: LOWER CHEST: The visualized lung bases are clear. LIVER: Normal in size and contour. No focal lesion. BILIARY SYSTEM: Status post cholecystectomy. PANCREAS: No mass, ductal dilation, or bobby-pancreatic fluid. SPLEEN: Mildly enlarged. No focal lesion. ADRENALS: Normal; no mass. KIDNEYS AND URETERS: Normal size and contour. Nonobstructing right mid to lower pole 1-2 mm calculus No hydronephrosis or hydroureter. No enhancing mass or filling defect within the renal pelvises. No suspicious filling defects within the ureters. URINARY BLADDER: Normal in appearance. No suspicious mass or stone. GASTROINTESTINAL TRACT: No evidence of bowel obstruction, free air, significant free fluid or abscess . APPENDIX: No inflammatory changes in region of appendix. LYMPH NODES: No lymphadenopathy. REPRODUCTIVE ORGANS: Enlarged uterus with some heterogeneity along the endometrial lining, with morales es of recent hysterectomy. Marginally enhancing fluid collections along the anterior aspect of the uterus, with the lower component present along the tract measuring 4.9 x 5.4 x 2.1 cm, and the largest superior component left of midline measuring 3.2 x 1.7 x 4.7 cm. MUSCULOSKELETAL: No acute or suspicious osseous abnormality. ADDITIONAL FINDINGS: None. IMPRESSION: Post appearance of the uterus, with some marginally enhancing collections anterior to the u terus, largest measuring up to 5.4 cm, most suggestive of seromas. Superimposed infection cannot be entirely excluded. Please correlate clinically. Other incidental findings including nonobstructing right renal 1-2 mm calculus.
--- NOTE | 2024-03-05 20:44 | EDPHYS ---
Physician Documentation [facility] Name: Radha Huitron Age: 33 yrs Sex: Female : 1990 Arrival Date: 03/05/2024 Time: 17:02 Bed 6 Private MD: ED Physician Lenin Benitez HPI: 03/05 17:35 This 33 yrs old Female presents to ER via Ambulatory with complaints of Low Back Pain. cp 17:35 The patient complains of pain in the right flank. cp 17:35 The pain radiates to the abdomen. cp 17:35 Onset: The symptoms/episode began/occurred gradually, and became worse this morning. cp Associated signs and symptoms: Pertinent negatives: diarrhea, fever, headache, pain radiating to the lower extremities, vomiting. Severity of pain: in the emergency department the pain is unchanged despite home interventions. 17:35 Patient reports having delivery 02/18 with no complications. 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 - Infectious Disease History:: Denies. - Social history:: Smoking status: Patient denies any tobacco usage or history of. ROS: 17:40 Back: Positive for flank pain, cp 17:40 Eyes: Negative for injury, pain, redness, and discharge, cp 17:40 Constitutional: Negative for body aches, chills, fever, poor PO intake, 17:40 Cardiovascular: Negative for chest pain, 17:40 Respiratory: Negative for cough, shortness of breath, wheezing, 17:40 Abdomen/GI: Positive for abdominal pain, nausea, 17:40 : Positive for urinary symptoms, Negative for heavy vaginal bleeding, 17:40 Neuro: Negative for altered mental status, headache, numbness, syncope, weakness, 17:40 All other systems are negative, Exam: 17:45 Constitutional: The patient appears in no acute distress, alert, awake, non-toxic, well cp developed, well nourished, uncomfortable, 17:45 Head/Face: Normocephalic, atraumatic. cp 17:45 Eyes: Periorbital structures: appear normal, Conjunctiva: normal, no exudate, no injection, Sclera: no appreciated abnormality, Lids and lashes: appear normal, bilaterally, 17:45 ENT: External ear(s): are unremarkable, Nose: is normal, Mouth: Lips: moist, Oral mucosa: moist, Posterior pharynx: Airway: no evidence of obstruction, patent, 17:45 Chest/axilla: Inspection: normal, 17:45 Cardiovascular: Rate: tachycardic, Rhythm: regular, Edema: is not appreciated, JVD: is not appreciated, 17:45 Respiratory: the patient does not display signs of respiratory distress, Respirations: normal, no use of accessory muscles, no retractions, labored breathing, is not present, intercostal retractions, are absent, shallow respirations, are not present, Breath sounds: are clear throughout, no decreased breath sounds, no stridor, no wheezing, 17:45 Abdomen/GI: Inspection: distension, that is mild, Bowel sounds: active, all quadrants, Palpation: soft, in all quadrants, mild abdominal tenderness, in the right lower quadrant and left lower quadrant, rebound tenderness, is not appreciated, involuntary guarding, is not appreciated, 17:45 Back: pain, that is moderate, of the right mid back and right low back and right flank, ROM is painful, with all movement, 17:45 Neuro: Orientation: to person, place \T\ time. Mentation: is normal, Motor: moves all fours, strength is normal, Sensation: is normal, Gait: is steady, Vital Signs: 17:15 BP 132 / 97; Pulse 101; Resp 18; Temp 97.9; Pulse Ox 100% ; Weight 66.68 kg; Height 5 db ft. 2 in. ; 18:03 BP 123 / 87; Pulse 86; Resp 18; Pulse Ox 99% on R/A; Pain 8/10; ld1 19:29 BP 119 / 73; Pulse 75; Resp 16; Pulse Ox 97% on R/A; dd2 21:29 BP 121 / 71; Pulse 78; Resp 16; Temp 98.4; Pulse Ox 100% ; dd2 17:15 Body Mass Index 26.89 (66.68 kg, 157.48 cm) db 18:03 Pain Scale: Adult ld1 MDM: 17:14 Medical Screening Exam initiated cp 20:43 Data reviewed: vital signs, nurses notes, lab test result(s), radiologic studies, CT cp scan. 20:43 Differential diagnosis: nephrolithiasis, pyelonephritis, UTI, sepsis. I considered the cp following discharge prescriptions or medication management in the emergency department Medications were administered in the Emergency Department. See MAR. Counseling: I had a detailed discussion with the patient and/or guardian regarding the historical points, exam findings, and any diagnostic results supporting the discharge/admit diagnosis, lab results, radiology results, to return to the emergency department if symptoms worsen or persist or if there are any questions or concerns that arise at home. Response to treatment: the patient's symptoms have markedly improved after treatment, and as a result, I will discharge patient. 03/05 17:34 Order name: CBC with Diff; Complete Time: 20:29 03/05 18:42 Interpretation: Normal except: WBC 14.90; RBC 5.01; HGB 9.6; HCT 30.6; MCV 61.1; MCH cp 19.1; MCHC 31.2; PLT 1140; RDW 15.4; MPV 6.6; EULALIO% 74.8; NEUT A 11.2. 03/05 17:34 Order name: CMP; Complete Time: 18:42 03/05 18:42 Interpretation: Normal except: ALB 2.5; GLOB 5.4; A/G 0.5. 03/05 17:34 Order name: Lipase; Complete Time: 18:42 03/05 20:39 Interpretation: Reviewed. 03/05 17:34 Order name: Test, Urine; Complete Time: 18:42 03/05 17:34 Order name: Urinalysis w/ reflexes; Complete Time: 18:42 03/05 20:40 Interpretation: Normal except: UCLA Extremely Turbid; UBLD 1+; UESTR 500; UWBC 20-50; cp UWBC Clump Occasional; BYST Occasional. 03/05 18:14 Order name: Urine Culture EDTN 03/05 18:14 Order name: CBC Smear Scan; Complete Time: 20:29 EDTN 03/05 18:43 Order name: Lactate w/ 2H reflex if indic.; Complete Time: 20:29 03/05 18:43 Order name: Blood Culture Adult (2) 03/05 17:36 Order name: CT Abd/Pelvis- W/WO Contrast; Complete Time: 20:29 cp 03/05 20:31 Interpretation: Reviewed. cp 03/05 17:35 Order name: IV Saline Lock; Complete Time: 18:02 cp 03/05 17:35 Order name: Labs collected and sent; Complete Time: 18:02 cp 03/05 20:31 Order name: PO challenge; Complete Time: 20:44 cp Administered Medications: 18:02 Drug: TORadol - Ketorolac IVP 15 mg IVP once Route: IVP; Site: right antecubital; ld1 19:10 Follow up: Response: No adverse reaction dd2 18:02 Drug: Ondansetron IVP 4 mg IVP once; over 2 minutes Route: IVP; Site: right antecubital;ld1 19:10 Follow up: Response: No adverse reaction dd2 18:02 Drug: NS 0.9% IV 1000 ml IV at 1 bolus Per protocol; to be given as a bolus over 60 ld1 minutes Route: IV; Rate: 1 bolus; Site: right antecubital; 19:10 Follow up: Response: No adverse reaction dd2 19:39 Drug: Methocarbamol IVPB 1 grams IVPB once over 1 hrs; (mix in NS 100 mL) Route: IVPB; dd2 Infused Over: 1 hrs; Site: right antecubital; 19:54 Follow up: Response: No adverse reaction dd2 21:00 Follow up: IV Status: Completed infusion; IV Intake: 100ml dd2 19:39 Drug: Rocephin IV 1 grams IV at calculated rate once; Given slow IV push per pharmacy dd2 instructions Route: IV; Rate: calculated rate; Site: right antecubital; 19:52 Follow up: IV Status: Completed infusion; IV Intake: 10ml dd2 19:54 Follow up: Response: No adverse reaction dd2 21:12 Drug: HYDROcodone-acetaminophen PO 10 mg-325 mg 1 tabs PO once Route: PO; dd2 21:31 Follow up: Response: No adverse reaction dd2 Disposition Summary: 03/05/24 20:44 Discharge Ordered Notes: Location: Home cp Problem: new cp Symptoms: have improved cp Condition: Stable cp Diagnosis - Calculus of kidney cp - UTI/ Urinary tract infection, site not specified cp Followup: cp - With: Private Physician - When: 2 - 3 days - Reason: Recheck today's complaints Discharge Instructions: - Discharge Summary Sheet cp - Kidney Stones cp - Urinary Tract Infection, Adult cp Forms: - Medication Reconciliation Form cp - Antibiotic Education cp - Prescription Opioid Use cp - Patient Portal Instructions cp - Leadership Thank You Letter cp Prescriptions: - Ibuprofen 800 mg Oral Tablet - take 1 tablet ORAL route every 8 hours As needed take with food; 30 tablet; cp Refills: 0, Product Selection Permitted - Zofran 4 mg Oral Tablet - take 1 tablet ORAL route every 12 hours As needed; 20 tablet; Refills: 0, cp Product Selection Permitted - orphenadrine citrate 100 mg Oral Tablet Sustained Release - take 1 tablet ORAL route 2 times per day As needed; 20 tablet; Refills: 0, cp Product Selection Permitted - cefpodoxime 200 mg Oral tablet - take 1 tablet ORAL route every 12 hours with food; 20 tablet; Refills: 0, cp Product Selection Permitted Addendum: 03/08/2024 14:59 Co-signature as Attending Physician, Lenin Benitez MD I agree with the assessment and c strong plan of care. Signatures: Dispatcher [employer] Lenin Nix MD MD cha Page, Corey, PA PA Niecy Dash RN RN ld1 Brook Rodriguez RN RN db DIPTI RITTER RN RN dd2 Corrections: (The following items were deleted from the chart) 03/05 17:35 17:35 CBC+H.LAB.BRZ ordered. EDMS EDMS 17:35 17:35 COMPREHENSIVE METABOLIC PANEL+C.LAB.BRZ ordered. EDMS EDMS 17:35 17:35 LIPASE+C.LAB.BRZ ordered. EDMS EDMS 17:35 17:35 Test, Urine+UC.LAB.BRZ ordered. EDMS EDMS 17:35 17:35 Urinalysis+U.LAB.BRZ ordered. EDMS EDMS
--- NOTE | 2024-03-05 20:44 | ER ---
Nurse's Notes [facility] Name: Radha Huitron Age: 33 yrs Sex: Female : 1990 Arrival Date: 03/05/2024 Time: 17:02 Bed 6 Private MD: Diagnosis: Calculus of kidney;UTI/ Urinary tract infection, site not specified Presentation: 03/05 17:15 Chief complaint: Patient states: LOWER BACK PAIN RECENT GAVE 02/18 AND WAS GIVEN db MULTIPLE ANTIBIOTICS. Coronavirus screen: Client denies travel out of the [place] in the last 14 days. At this time, the client does not indicate any symptoms associated with coronavirus-19. Ebola Screen: Patient negative for fever greater than or equal to 101.5 degrees Fahrenheit, and additional compatible Ebola Virus Disease symptoms Patient denies exposure to infectious person. Patient denies travel to an Ebola-affected area in the 21 days before illness onset. No symptoms or risks identified at this time. Initial Sepsis Screen: Does the patient meet any 2 criteria? No. Patient's initial sepsis screen is negative. Does the patient have a suspected source of infection? No. Patient's initial sepsis screen is negative. Risk Assessment: Do you want to hurt yourself or someone else? Patient reports no desire to harm self or others. Onset of symptoms was March 05, 2024. 17:15 Method Of Arrival: Ambulatory db 17:15 Acuity: EDITH 3 db Triage Assessment: 17:17 General: Appears in no apparent distress. comfortable, Behavior is calm, cooperative. db Pain: Complains of pain in back. Neuro: Level of Consciousness is awake, alert, obeys commands, Oriented to person, place, time, situation. Respiratory: Airway is patent Respiratory effort is even, unlabored, Respiratory pattern is regular, symmetrical. 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 - Infectious Disease History:: Denies. - Social history:: Smoking status: Patient denies any tobacco usage or history of. Screenin:03 [facility] ED Fall Risk Assessment (Adult) History of falling in the last 3 months, ld1 including since admission No falls in past 3 months (0 pts) Confusion or Disorientation No (0 pts) Intoxicated or Sedated No (0 pts) Impaired Gait No (0 pts) Mobility Assist Device Used No (0 pt) Altered Elimination No (0 pt) Score/Fall Risk Level 0 - 2 = Low Risk Oriented to surroundings, Maintained a safe environment, Educated pt \T\ family on fall prevention, incl call for assistance when getting out of bed, Assessed \T\ reinforced patient's understanding of fall precautions, Provided non-skid footwear, Hourly rounding (assess needs \T\ fall precautionary measures) done, Used ambulatory aids as needed (educated on \T\ assisted with), Used gait belt as appropriate. Abuse screen: Denies threats or abuse. Denies injuries from another. Nutritional screening: No deficits noted. Tuberculosis screening: No symptoms or risk factors identified. Assessment: 18:03 General: Appears in no apparent distress. uncomfortable, Behavior is calm, cooperative, ld1 appropriate for age. Pain: Complains of pain in right low back Pain does not radiate. Pain currently is 8 out of 10 on a pain scale. Quality of pain is described as tingling, throbbing, Pain began 1 day ago. Is continuous. Neuro: Level of Consciousness is awake, alert, obeys commands, Oriented to person, place, time, situation, Appropriate for age. Cardiovascular: Capillary refill < 3 seconds Patient's skin is warm and dry. Respiratory: Airway is patent Respiratory effort is even, unlabored. GI: Abdomen is round non-distended. GI: Reports nausea. : No signs and/or symptoms were reported regarding the genitourinary system. EENT: No signs and/or symptoms were reported regarding the EENT system. Derm: No signs and/or symptoms reported regarding the dermatologic system. Musculoskeletal: No signs and/or symptoms reported regarding the musculoskeletal system. Vital Signs: 17:15 BP 132 / 97; Pulse 101; Resp 18; Temp 97.9; Pulse Ox 100% ; Weight 66.68 kg; Height 5 db ft. 2 in. ; 18:03 BP 123 / 87; Pulse 86; Resp 18; Pulse Ox 99% on R/A; Pain 8/10; ld1 19:29 BP 119 / 73; Pulse 75; Resp 16; Pulse Ox 97% on R/A; dd2 21:29 BP 121 / 71; Pulse 78; Resp 16; Temp 98.4; Pulse Ox 100% ; dd2 17:15 Body Mass Index 26.89 (66.68 kg, 157.48 cm) db 18:03 Pain Scale: Adult ld1 ED Course: 17:06 Patient arrived in ED. im 17:10 Lenin Coleman PA is PHCP. cp 17:10 Lenin Benitez MD is Attending Physician. cp 17:16 Triage completed. db 17:17 Arm band placed on Patient placed in an exam room. db 17:32 Niecy Thorpe, REENA is Primary Nurse. ld1 18:02 Urinalysis w/ reflexes Sent. ld1 18:02 Test, Urine Sent. ld1 18:02 Lipase Sent. ld1 18:02 CMP Sent. ld1 18:02 CBC with Diff Sent. ld1 18:03 Patient has correct armband on for positive identification. Placed in gown. Bed in low ld1 position. Call light in reach. Side rails up X2. brake engineer on. Pulse ox on. NIBP on. Door closed. Noise minimized. Warm blanket given. 18:03 No provider procedures requiring assistance completed. Inserted saline lock: 20 gauge ld1 in right antecubital area, using aseptic technique. Blood collected. Flushed with 10 mL NS. 18:31 CT Abd/Pelvis- W/WO Contrast In Process Unspecified. EDMS 19:24 Blood Culture Adult (2) Sent. dd2 19:24 Lactate w/ 2H reflex if indic. Sent. dd2 21:29 Provided Education on: d/c instructions. dd2 21:29 IV discontinued, intact, bleeding controlled, No redness/swelling at site. Pressure dd2 dressing applied. Administered Medications: 18:02 Drug: TORadol - Ketorolac IVP 15 mg IVP once Route: IVP; Site: right antecubital; ld1 19:10 Follow up: Response: No adverse reaction dd2 18:02 Drug: Ondansetron IVP 4 mg IVP once; over 2 minutes Route: IVP; Site: right antecubital;ld1 19:10 Follow up: Response: No adverse reaction dd2 18:02 Drug: NS 0.9% IV 1000 ml IV at 1 bolus Per protocol; to be given as a bolus over 60 ld1 minutes Route: IV; Rate: 1 bolus; Site: right antecubital; 19:10 Follow up: Response: No adverse reaction dd2 19:39 Drug: Methocarbamol IVPB 1 grams IVPB once over 1 hrs; (mix in NS 100 mL) Route: IVPB; dd2 Infused Over: 1 hrs; Site: right antecubital; 19:54 Follow up: Response: No adverse reaction dd2 21:00 Follow up: IV Status: Completed infusion; IV Intake: 100ml dd2 19:39 Drug: Rocephin IV 1 grams IV at calculated rate once; Given slow IV push per pharmacy dd2 instructions Route: IV; Rate: calculated rate; Site: right antecubital; 19:52 Follow up: IV Status: Completed infusion; IV Intake: 10ml dd2 19:54 Follow up: Response: No adverse reaction dd2 21:12 Drug: HYDROcodone-acetaminophen PO 10 mg-325 mg 1 tabs PO once Route: PO; dd2 21:31 Follow up: Response: No adverse reaction dd2 Medication: 18:03 VIS not applicable for this client. ld1 Intake: 19:52 IV: 10ml; Total: 10ml. dd2 21:00 IV: 100ml; Total: 110ml. dd2 Outcome: 20:44 Discharge ordered by MD. cp 21:29 Discharged to home ambulatory, dd2 21:29 Condition: stable 21:29 Discharge instructions given to patient, Instructed on discharge instructions, follow up and referral plans. medication usage, Demonstrated understanding of instructions, follow-up care, medications, Prescriptions given X 4, 21:31 Patient left the ED. dd2 Signatures: Dispatcher [employer] EDLenin Garcia PA PA cp Sims, Lauren, RN RN ld1 Brook Rodriguez RN RN db Pati Knott DIANA, RN RN dd2
[2024-03-05] MEDS ORDERED: HYDROCODONE/APAP 10/325 TAB ONE (21:02)
[2024-03-05 21:40] VITALS: BP 121/71; TEMP 98.4; O2SAT 100
== END 2024-03-05 21:31 | disposition home or self-care (01) ==
LOC: ER 17:02
DX: N20.0 Calculus of kidney (principal); N39.0 Urinary tract infection, site not specified
CPT/HCPCS: 96365; 87040 ×2; 87088; 85025; 81001; 87086; 36415; 81025; 83605; 83690; 80053; 74178; 96375; 99285; Q9967; J2405; J2800; J7030; J0696